=== PATIENT | female | born 1955 | race African-American/Black ===

== ENCOUNTER 2016-05-08 21:44 | Inpatient (IN) | payer MEDICAID ==
[2016-05-08] MEDS ORDERED: Clindamycin 900 mg/D5W 50 ml 900 MG/50 ML IVB IV ONE (23:10)
[2016-05-08] MEDS ORDERED: ACETAMINOPHEN 325 MG/TAB TABLET PO ONE (23:11)
--- NOTE | 2016-05-08 23:14 | EDPRACDOC ---
- General Information Chief Complaint: Knee Pain Stated Complaint: KNEE PAIN Time Seen by Provider: 05/08/16 22:50 Information Source: Patient Mode of Arrival: Car Home Medications: Home Medications Beclomethasone Dipropionate [QVar 80 (8.7 gm inhaler)] 2 puff INH BID 01/01/13 Estrogens [Premarin] 0.625 mg PO DAILY 01/01/13 Tiotropium [Spiriva Handihaler] 18 mcg INH DAILY 01/01/13 MetFORMIN (Immediate Release) [GLUCOPHAGE Immed Release] 500 mg PO BID 07/08/13 Albuterol Sulfate [Proventil Hfa] 2 puff INH BID 02/12/16 Azathioprine [Azasan] 100 mg PO DAILY 02/12/16 Fenofibric Acid (Choline) [Trilipix] 135 mg PO DAILY 02/12/16 Fesoterodine Fumarate [Toviaz] 8 mg PO DAILY 02/12/16 Hydroxyzine HCl 25 mg PO TID PRN 02/12/16 Multivitamin [One Daily] 1 each PO DAILY 03/28/16 Aspirin (OrangeEnteric Coated) [Ecotrin] 325 mg PO BIDWM #60 tablet 04/04/16 Celecoxib (anti-inflammatory) [Celebrex] 200 mg PO BIDWM #28 capsule 04/04/16 Oxycodone Immediate Release [Oxycodone Immediate Release (OxyIR)] 5 mg PO Q4 PRN #60 tablet 04/04/16 Allergies/Adverse Reactions: Allergies Allergy/AdvReac Type Severity Reaction Status Date / Time Penicillins Allergy Hives* Verified 05/09/16 00:39 - History of Present Illness 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 PAIN IN RIGHT LATERAL THIGH FOR SEVERAL DAYS. INCREASING. "BLEEDING FROM MIDDLE OF INCISION FOR SEVERAL DAYS. THEN TODAY PROGRESSED TO "PURE PUS". ASSOC WITH SHAKING CHILLS. AND INCREASING PAIN DESPITE PAIN MEDS. Knee Problem Location: Right ED Past Medical History - History Reviewed Yes Nurses notes reviewed and agree except as marked - Patient Medical History Cardiac History: Reports: Coronary Artery Disease (NON OBSTRUCTIVE), Hypertension, Cardiac Catheterization (2011), Hypercholesterolemia Respiratory History: Reports: Asthma GI/ History: Reports: Urinary Tract Infection, Gastroesophageal Reflux Musculoskeletal History: Reports: Arthritis, Osteoarthritis Psychological History: Denies: Depression Systemic History: Reports: Cancer, Anemia, Diabetes Surgical History: Reports: Cholecystectomy, Cardiac Catheterization (2012). Denies: Hysterectomy - Family Medical History Reports: Hypertension (Father,Mother,Siblings), Diabetes (Father,brothers), Cardiac Disorders (Father,Brother). Denies: Cancer, Stroke - Social Medical History Smoking Status: Heavy tobacco smoker (5 or more cigarettes/day or daily pipe/ cigar) EDM Review of Systems - Review of Systems ROS Negative Except as Marked: Yes All systems reviewed and were negative except as marked Mouth: No Symptoms Reported Respiratory: No Symptoms Reported. negative: Cough, Shortness of Breath Genitourinary: negative: Dysuria, Frequency, Foul Ordor - Physical Exam Constitutional: No apparent distress, Alert, Other (MORBID OBESITY) Oriented to: Time, Person, Place Last recorded Vital Signs: Last Vital Signs Temp 100.1 F 05/08/16 22:56 Pulse 108 05/08/16 22:56 Resp 20 05/08/16 22:56 BP 172/76 05/08/16 22:56 Pulse Ox 99 05/08/16 22:56 Oxygen Pulse Oxygen Saturation 99 O2 Device Room Air Oxygen Flow Rate Fraction of Inspired Oxygen ( FIO2) - HEENT Head: Normal Eye Exam: negative: Pale Conjunctiva, Scleral Icterus Oropharynx: Normal. negative: Membranes Dry - Respiratory/Cardiovascular Respiratory: Normal - CTA Cardiovascular: Normal - GI Tenderness: Non tender ED Knee Problem Phys Exam - Musculoskeletal Knee: Swelling, Joint Effusion, Limited ROM ( EXPECTED), Moderate Tenderness Knee Image: 1 - ERYTHEMA AND WARTH W/O CREPITANCE. 2 - ERYTHEMA AND WARTH W/O CREPITANCE. 3 - INCISION, STERI-STRIPS IN PLACE. MIDDLE ASPECT HAS EVIDENCE OF PRIOR BLEEDING (NON-CURRENTLY). UNABLE TO EXPRESS FLUID. Thigh: Moderate Tenderness (LATERAL / DISTAL THIGH) Lower Leg: Normal Distal Function/Circulation: Normal, Capillary Refill (BRISK). negative: Motor Deficit, Pulse Deficit, Sensory Deficit - Results 05/08/16 23:50 05/08/16 23:50 - Departure Disposition: Admit IP To This Hospital Final Diagnosis: Wound infection after surgery Qualifiers: Encounter type: initial encounter Qualified Code(s): T81.4XXA - Infection following a procedure, initial encounter Instructions: RICE: Routine Care for Injuries Education/Counseling Given To: Patient Education/Counseling Given Regarding: Diagnosis, Treatment, Prognosis Referrals: Von Leslie MD [Primary Care Provider] - One Week Prescriptions: No Action Estrogens [Premarin] 0.625 mg PO DAILY Tiotropium [Spiriva Handihaler] 18 mcg INH DAILY Beclomethasone Dipropionate [QVar 80 (8.7 gm inhaler)] 2 puff INH BID MetFORMIN (Immediate Release) [GLUCOPHAGE Immed Release] 500 mg PO BID Hydroxyzine HCl 25 mg PO TID PRN PRN Reason: Hives Fesoterodine Fumarate [Toviaz] 8 mg PO DAILY Azathioprine [Azasan] 100 mg PO DAILY Fenofibric Acid (Choline) [Trilipix] 135 mg PO DAILY Albuterol Sulfate [Proventil Hfa] 2 puff INH BID Multivitamin [One Daily] 1 each PO DAILY Aspirin (OrangeEnteric Coated) [Ecotrin] 325 mg PO BIDWM #60 tablet Celecoxib (anti-inflammatory) [Celebrex] 200 mg PO BIDWM #28 capsule Oxycodone Immediate Release [Oxycodone Immediate Release (OxyIR)] 5 mg PO Q4 PRN #60 tablet PRN Reason: Mild To Moderate Pain Decision to Admit Time: 23:45 Decision to admit date: 05/09/16 Decision to admit: from ED - Physician Consulted Orthopedics Time Called: 23:27 Provider Called: Frank Mendoza Time [employer] Returned Call: 23:27 (WILL CONSIDER DISPO AFTER LABS) Time [employer] Drafter in ED: 23:45 (SEEN BY DR NIXON, WILL ADMIT)
[2016-05-08 23:48] LABS: CA OXALATE OCC; LEUKOCYTES/URINE NEG (NEGATIVE); NITRITE/URINE NEG (NEGATIVE); URINE OCCULT BLOOD NEG (NEG/TRACE)
[2016-05-09] MEDS ORDERED: Aluminum;Magnesium;Simethicone 30 ML UDC PO PRN (00:14)
[2016-05-09] MEDS ORDERED: ONDANSETRON HCL 4 MG/2 ML VIAL IV PRN ×2 (00:14→11:05)
[2016-05-09] MEDS ORDERED: PROMETHAZINE 25 MG/ML VIAL IV PRN (00:14)
[2016-05-09] MEDS ORDERED: HYDROmorphone 1 MG INJECTION IV PRN ×6 (00:14→15:50)
[2016-05-09] MEDS ORDERED: SODIUM CHLORIDE 0.9% 3 ML FLUSH FLUSH PRN (00:14)
[2016-05-09] MEDS ORDERED: MAGNESIUM HYDROXIDE 30 ML BOTTLE PO PRN (00:14)
--- NOTE | 2016-05-09 00:16 | DIRPT ---
CLINICAL DATA: Postoperative right knee arthroplasty revision. Redness and swelling with purulent drainage at the incision site. EXAM: RIGHT KNEE - COMPLETE 4+ VIEW COMPARISON: 04/02/2016 FINDINGS: Postoperative right total knee arthroplasty using long-stem articulated femoral and tibial components. Plate and screw fixation along the medial tibial metaphysis. The proximal portion of the femoral component is not included within the field of view. Visualize components appear well seated. No evidence of any bone lucency or cortical loss to suggest osteomyelitis. No significant effusion. No evidence of acute fracture or dislocation. Soft tissues are unremarkable. IMPRESSION: Postoperative changes with right knee arthroplasty using long-stem components. Components appear well seated as visualized. No acute bony abnormalities. Electronically Signed By: Jus Gil M.D. On: 05/09/2016 00:13
[2016-05-09 00:24] LABS: AUTOMATED BASOPHIL 1.1 % (0-2); AUTOMATED EOSINOPHIL 0.4 % (0-5); AUTOMATED LYMPH 10.7 % (17-44); AUTOMATED MONOCYTE 5.1 % (3-10); AUTOMATED NEUTROPHIL 82.7 % (45-76); MPV 9.5 fL (7.4-10.4)
--- NOTE | 2016-05-09 00:34 | HISTPHYS ---
- Chief Complaint knee pain right - History of Present Illness Mrs Stone is a 60-year-old female who underwent revision right total knee arthroplasty 1 month ago. She had an uneventful recovery and recently was discharged home from a rehab facility. Patient states that over a week ago she was transferring from her toilet when she felt something tear in the anterior aspect of the right knee. She later noticed some bleeding from the midportion of her incision that day. Patient states that this has occurred off and on over the past week and today she noticed purulent drainage from the same area at the midportion of her incision. She does have associated redness and swelling of the right knee and increased pain with any attempts at ambulation. She does complain of fevers and chills. Patient presented to the ER today with the above complaints. - Medical History Cardiac History: Reports: Coronary Artery Disease (NON OBSTRUCTIVE), Hypertension, Cardiac Catheterization (2011), Hypercholesterolemia Respiratory History: Reports: Asthma GI/ History: Reports: Urinary Tract Infection, Gastroesophageal Reflux Musculoskeletal History: Reports: Arthritis, Osteoarthritis Systemic History: Reports: Cancer, Anemia, Diabetes Psychological History: Denies: Depression - Surgical History Reports: Cholecystectomy, Cardiac Catheterization (2011), Other (Revision right total knee arthroplasty 04/02/2016). Denies: Hysterectomy - Medictions/Allergies Allergies Penicillins Allergy (Verified 04/02/16 18:40) Hives* Home Medications Beclomethasone Dipropionate [QVar 80 (8.7 gm inhaler)] 2 puff INH BID 01/01/13 Estrogens [Premarin] 0.625 mg PO DAILY 01/01/13 Tiotropium [Spiriva Handihaler] 18 mcg INH DAILY 01/01/13 MetFORMIN (Immediate Release) [GLUCOPHAGE Immed Release] 500 mg PO BID 07/08/13 Albuterol Sulfate [Proventil Hfa] 2 puff INH BID 02/12/16 Azathioprine [Azasan] 100 mg PO DAILY 02/12/16 Fenofibric Acid (Choline) [Trilipix] 135 mg PO DAILY 02/12/16 Fesoterodine Fumarate [Toviaz] 8 mg PO DAILY 02/12/16 Hydroxyzine HCl 25 mg PO TID PRN 02/12/16 Multivitamin [One Daily] 1 each PO DAILY 03/28/16 Aspirin (OrangeEnteric Coated) [Ecotrin] 325 mg PO BIDWM #60 tablet 04/04/16 Celecoxib (anti-inflammatory) [Celebrex] 200 mg PO BIDWM #28 capsule 04/04/16 Oxycodone Immediate Release [Oxycodone Immediate Release (OxyIR)] 5 mg PO Q4 PRN #60 tablet 04/04/16 - Family History Reports: Hypertension (Father,Mother,Siblings), Diabetes (Father,brothers), Cardiac Disorders (Father,Brother). Denies: Cancer, Stroke - Social History Smoking Status: Heavy tobacco smoker (5 or more cigarettes/day or daily pipe/ cigar) - Review of Systems Yes All systems reviewed and were negative except as marked Constitutional: Chills, Fever Musculoskeletal:: Other (Right knee pain, swelling, redness, drainage) - Physical Exam Vital Signs: Initial Vitals Temperature 100.5 F 05/08/16 21:58 Pulse Rate 106 05/08/16 21:58 Respiratory Rate 20 05/08/16 21:58 Blood Pressure 159/71 05/08/16 21:58 Pulse Oxygen Saturation 97 05/08/16 21:58 Constitutional: No apparent distress, Alert Oriented to: Time, Person, Place - HEENT Head: Normal Eye: Normal Respiratory: Normal - CTA Cardiovascular: Normal - GI Auscultation: Normal Palpation: Normal Tenderness: Non tender - Exam Deferred: Yes - Musculoskeletal Extremities: Other (Right knee does have moderate erythema and a mild effusion. She does have active expressible purulent drainage from the midportion of her incision. No bloody drainage. Active range of motion is limited by pain. Passive range of motion 0-90 degrees. No gross laxity. Patient has full plantar flexion and dorsiflexion of the right ankle. Sensation intact L4-S1 distally. Palpable dorsalis pedis and posterior tibial pulses distally.) - Lab Results 05/08/16 23:50 Sed rate, CRP pending Blood cultures pending - Diagnostic Findings Four view x-ray of the right knee done in the ER was personally reviewed. X- rays reveal revision total knee arthroplasty components to be in acceptable position. No evidence of fracture, lytic or blastic lesions or evidence of loosening. Proximal tibial but plate present. - Assessment/Plan (1) Wound infection after surgery T81.4XXA - INFECTION FOLLOWING A PROCEDURE, INITIAL ENCOUNTER Acute Present on Admission: Yes initial encounter T81.4XXA - Infection following a procedure, initial encounter Case Care Discussed with: Patient, Consultants Plan: 1. Postop wound infection right knee. Probable acute right total knee arthroplasty infection 2. Status post revision right total knee arthroplasty 04/02/2016 -patient has been it admitted to the orthopedic service. Will consult hospitalist for preoperative medical clearance and medical comanagement -recommend NPO after midnight and hold all antibiotics. -ESR, CRP labs are pending. -recommendations for incision and drainage of the right knee with polyethylene exchange, possible explantation of total knee components and placement of an antibiotic spacer was made to the patient at today's visit. Risks of the procedure to include but not limited to: Infection, blood loss, blood clots, wound healing problems, fracture, Brie risks of anesthesia, or need further procedures were discussed with the patient. She does understand these risks and elects to proceed with the planned surgery. -on-call to the OR tomorrow for right knee washout, poly exchange
[2016-05-09 00:38] LABS: BLOOD UREA NITROGEN 13 MG/DL (7-17); CALC CORRECTED 9.8 MG/DL (8.4-10.2); CALCIUM 9.6 MG/DL (8.4-10.2); CALCULATED OSMOLALITY 272 MOs/Kg (270-290); CHLORIDE 105 mEq/L (98-107); GLUCOSE 112 MG/DL (70-99); SODIUM LEVEL 141 mEq/L (137-146); TOTAL PROTEIN 8.1 G/DL (6.3-8.2)
[2016-05-09] MEDS ORDERED: NALOXONE 0.4 MG/ML AMPULE IV SCH ×2 (01:00)
[2016-05-09] MEDS ORDERED: MUPIROCIN 2% OINT 22 GM TUBE NAS SCH ×2 (01:00→05:00)
[2016-05-09] MEDS: NS 1,000 ML IV SCH ×3 (01:14→16:20)
--- NOTE | 2016-05-09 01:25 | HIMCONSMED ---
Consultation Date: 05/09/16 Requesting Physician: Devin Mccarthy Consulting Doctor: Uche Leal (Thank you) Consult Reason: Medical Management Patient very pleasant morbidly obese single female who lives with her granddaughter and unfortunately suffers with obstructive sleep apnea, diabetes mellitus, osteoarthritis, autoimmune hepatitis diagnosed 3 years ago, hypertriglyceridemia, and now with an infected right knee replacement that took place in March 2016. She has had some mild difficulty ambulating with her obesity and tells me that she sat on the toilet 6 days ago, heard a pop in her right knee, and developed right lateral thigh pain which was exacerbated by standing. She contacted Dr. Mccarthy is office subsequently and has had great amount of difficulty ambulating. Today she noted blood and pus draining from her right knee. She is not aware of having any history of methicillin- resistant Staph aureus infection. Chief Complaint: knee pain right - Past Medical and Surgical History Cardiac History: Reports: Coronary Artery Disease (NON OBSTRUCTIVE), Hypertension, Cardiac Catheterization (2011), Hypercholesterolemia Respiratory History: Reports: Asthma GI/ History: Reports: Urinary Tract Infection, Gastroesophageal Reflux Systemic History: Reports: Cancer, Anemia, Diabetes Musculoskeletal History: Reports: Arthritis, Osteoarthritis Psychological History: Denies: Depression Past Surgical History: Reports: Cholecystectomy, Hysterectomy, Cardiac Catheterization (2011), Other (Revision right total knee arthroplasty 04/02/2016 ) Bilateral carpal tunnel surgery. Herniated lumbar disc surgery Allergies Penicillins Allergy (Verified 05/09/16 00:39) Hives* Home Medications Beclomethasone Dipropionate [QVar 80 (8.7 gm inhaler)] 2 puff INH BID 01/01/13 Estrogens [Premarin] 0.625 mg PO DAILY 01/01/13 Tiotropium [Spiriva Handihaler] 18 mcg INH DAILY 01/01/13 MetFORMIN (Immediate Release) [GLUCOPHAGE Immed Release] 500 mg PO BID 07/08/13 Albuterol Sulfate [Proventil Hfa] 2 puff INH BID 02/12/16 Azathioprine [Azasan] 100 mg PO DAILY 02/12/16 Fenofibric Acid (Choline) [Trilipix] 135 mg PO DAILY 02/12/16 Fesoterodine Fumarate [Toviaz] 8 mg PO DAILY 02/12/16 Hydroxyzine HCl 25 mg PO TID PRN 02/12/16 Multivitamin [One Daily] 1 each PO DAILY 03/28/16 Aspirin (OrangeEnteric Coated) [Ecotrin] 325 mg PO BIDWM #60 tablet 04/04/16 Celecoxib (anti-inflammatory) [Celebrex] 200 mg PO BIDWM #28 capsule 04/04/16 Oxycodone Immediate Release [Oxycodone Immediate Release (OxyIR)] 5 mg PO Q4 PRN #60 tablet 04/04/16 - Social History Travel Outside of [place] in the Last 3 Months?: No Lives: With Family (Granddaughter) Smoking Status: Light tobacco smoker (less than 5/day) (Claims to only smoke 3 cigarettes a day and is interested in [place]) Social History: Denies: Alcohol Use, Substance Use Disorder - Family History Reports: Hypertension (Father,Mother,Siblings), Diabetes (Father,brothers), Cardiac Disorders (Father,Brother). Denies: Cancer, Stroke - Review of Systems Constitutional: Chills, Fatigue, Weakness Eyes: No Symptoms Reported (No blurry vision, visual changes, eye pain, or eye redness.) Ears: No Symptoms Reported (No ear pain or discharge) Nose: No Symptoms Reported (No nasal discharge/congestion or bleeding) Mouth: No Symptoms Reported (No oropharyngeal lesions or erythema) Throat/Neck: No Symptoms Reported (No throat pain or swelling.No oropharyngeal lesions or erythema.) Respiratory: Other (Obstructive sleep apnea with morbid obesity) Cardiovascular: No Symptoms Reported (No chest pain or palpitations.) Gastrointestinal: Other (Morbid obesity with BMI 56.7) Genitourinary: No Symptoms Reported (No dysuria or hematuria.) Neurological: No Symptoms Reported (No headache, dizziness, seizures, or focal weakness.) Musculoskeletal:: Arthritis, Osteoarthritis, Joint Swelling (Right knee with pus ) Integumentary: Other (Right knee with pus) Allergic/Immunologic: No Symptoms Reported (no rashes or lesions) Hematologic: No Symptoms Reported (No chronic anemia, bleeding, or easy bruising.), Other (Lymphatics- no lymph node swelling or pain.) Endocrine: Diabetes Psychiatric: No Symptoms Reported (Fully oriented, with normal and appropriate affect.) - Physical Exam Vital Signs: Initial Vitals Temperature 100.5 F 05/08/16 21:58 Pulse Rate 106 05/08/16 21:58 Respiratory Rate 20 05/08/16 21:58 Blood Pressure 159/71 05/08/16 21:58 Pulse Oxygen Saturation 97 05/08/16 21:58 Constitutional: Alert (Awake, Fully oriented. Normal and appropriate affect.Well appearing. Well nourished.), No apparent distress Oriented to: Time, Person, Place - HEENT Head: Normal (normocephalic, atraumatic.), Other (No cervical lymphadenopathy. No supraclavicular lymphadenopathy. Neck: No palpable mass, supple , trachea midline.) Eye: Normal (pupils equal, reactive to light, and round; EOMI, Sclera white) Oropharynx: Normal (Pharynx: Moist without exudate,Gums-no swelling, No oropharyngeal lesions or erythema, Mucous membranes are dry.) ENT EAC: Normal (No oropharyngeal lesions or erythema. Mucous membranes are dry. ) TMJ: Normal Nose: No Symptoms Reported (septum midline, Nares patent, without discharge or bleeding.) Respiratory: Normal - CTA (Clear to auscultation bilaterally. No wheezing, rales , rhonchi. Chest wall movements are symmetric. No use of accessory muscles to breathe.) Cardiovascular: Normal (RRR , Normal S1, S2. No murmurs, rubs, or gallops. PMI non-displaced. Carotids: no carotid bruits. No bradycardia or tachycardia. DP pulses 2+ bilaterally.) - GI Auscultation: Normal (normal active sounds) Palpation: Normal (Soft,non distended,nontender. No hepatosplenomegaly.) Tenderness: Non tender (No rebound or guarding) Shaikh's Sign: Negative - Musculoskeletal Back: Normal (Non-Tender) Extremities: Pedal Edema, Other (Right knee wound draining purulent material and midline incision approximately half a cm in length with swelling and tenderness) Spine: non-tender, normal alignment, limited range of motion, muscle spasm - Integumentary Skin: Warm, Other (Purulent material draining from mid point of right knee incision) Lymphatics: Normal (No cervical lymphadenopathy. No supraclavicular lymphadenopathy.) - Neurologic Memory Impaired: Normal Motor Function: Normal (Motor 5/5 throughout.Normal tone, Pulses 2+ No cyanosis or edema, FROM) Cranial Nerve: Normal (CN II-XII intact sensation, strength 5/5) Cerebellar: Normal (Babinski: toes downgoing bilaterally. Intact Finger to nose. Sensory grossly intact to light touch. Intact rapid alternating movements bilaterally. No pronator drift.) Mood Description: Normal (Fully oriented. Normal and appropriate affect.) Thought: Coherent Perception: Normal (Normal and appropriate affect.) - Lab Results 05/08/16 23:50 05/08/16 23:50 Laboratory Results - last 24 hr 05/08/16 05/08/16 05/08/16 23:35 23:50 23:50 WBC RBC Hgb Hct MCV MCH MCHC RDW Plt Count MPV Neut % (Auto) Lymph % (Auto) [place] % (Auto) Eos % (Auto) Baso % (Auto) Absolute Neuts (auto) Absolute Lymphs (auto) ESR Sodium 141 Potassium 4.1 Chloride 105 Carbon Dioxide 24 Anion Gap 16 BUN 13 Creatinine 0.70 Estimated GFR (MDRD) > 60 Glucose 112 H Calculated Osmolality 272 Lactic Acid 2.5 H Calcium 9.6 Corrected Calcium 9.8 Total Bilirubin 0.7 AST 34 ALT 34 Alkaline Phosphatase 90 C-Reactive Prot, Quant Total Protein 8.1 Albumin 3.8 Urine Color Dark yellow Urine Clarity Sl cldy Urine pH 8.0 Ur Specific [place] 1.015 Urine Protein 1+ H Urine Glucose (UA) Neg Urine Ketones Neg Urine Occult Blood Neg Urine Nitrite Neg Urine Bilirubin Neg Urine Urobilinogen 8 H Ur Leukocyte Esterase Neg Ur Epithelial Cells 2+ Calcium Oxalate Crystal Occ Urine Bacteria Few Urine Mucus Occ 05/08/16 05/08/16 05/08/16 23:50 23:50 23:50 WBC 12.2 H RBC 3.70 L Hgb 11.0 L Hct 34.6 L MCV 93 MCH 29.6 MCHC 31.7 L RDW 16.0 H Plt Count 261 MPV 9.5 Neut % (Auto) 82.7 H Lymph % (Auto) 10.7 L [place] % (Auto) 5.1 Eos % (Auto) 0.4 Baso % (Auto) 1.1 Absolute Neuts (auto) 10.00 H Absolute Lymphs (auto) 1.22 ESR 63 H Sodium Potassium Chloride Carbon Dioxide Anion Gap BUN Creatinine Estimated GFR (MDRD) Glucose Calculated Osmolality Lactic Acid Calcium Corrected Calcium Total Bilirubin AST ALT Alkaline Phosphatase C-Reactive Prot, Quant 14.5 H Total Protein Albumin Urine Color Urine Clarity Urine pH Ur Specific [place] Urine Protein Urine Glucose (UA) Urine Ketones Urine Occult Blood Urine Nitrite Urine Bilirubin Urine Urobilinogen Ur Leukocyte Esterase Ur Epithelial Cells Calcium Oxalate Crystal Urine Bacteria Urine Mucus - Assessment (1) Wound infection T14.8 - OTHER INJURY OF UNSPECIFIED BODY REGION; L08.9 - LOCAL INFECTION OF THE SKIN AND SUBCUTANEOUS TISSUE, UNSP Acute Present on Admission: Yes Postop right knee wound infection warrants administration of IV antibiotic and surgical intervention by . She tolerated her last surgery without significant complications such as prolonged intubation and should be able to tolerate this again. She denies any significant history of chest pain, exertional or otherwise. Her dyspnea is related to the obstructive sleep apnea. She still has a slight increased risk of complications given her diabetes and morbid obesity. Weight loss would be beneficial as with smoking cessation. (2) Obstructive sleep apnea G47.33 - OBSTRUCTIVE SLEEP APNEA (ADULT) (PEDIATRIC) Acute Present on Admission: Yes Nocturnal CPAP as ordered. Of taken liberty of ordering this for her. Hopefully someone can bring her apparatus from home. (3) Morbid obesity with BMI of 50.0-59.9, adult E66.01 - MORBID (SEVERE) OBESITY DUE TO EXCESS CALORIES; Z68.43 - BODY MASS INDEX (BMI) 50-59.9 , ADULT Acute Present on Admission: Yes Weight reduction would help glycemic control and her unfortunate joints that have to support her adiposity. (4) Non-insulin dependent type 2 diabetes mellitus E11.9 - TYPE 2 DIABETES MELLITUS WITHOUT COMPLICATIONS Acute Present on Admission: Yes Sliding scale insulin therapy ordered as well as previous medications. Weight reduction may help in More ways than 1. (5) Tobacco abuse Z72.0 - TOBACCO USE Acute Present on Admission: Yes 10 minutes discussion smoking cessation. She states she has been able to stop for a few days in the past but never for prolonged period time. I advised her that she needs to stop given her multiple other problems. She agrees to take Chantix and may benefit from a transient low-dose nicotine patch. - Plan Thank you Dr. Mccarthy for allowing me to participate in this interesting once care and we look forward to seeing her with you. CC: Dr. Shari Leslie Case Care Discussed with: Patient, Consultants, Nursing Staff, Resource Management Total Time: One Hour 8 minutes plus additional 10 minutes discussing smoking cessation. Critical Care: No Code: Other ([phone])
[2016-05-09] MEDS ORDERED: GLUCOSE (ORAL GEL) 15 GM TUBE PO PRN (01:42)
[2016-05-09] MEDS ORDERED: DEXTROSE 25 GM/50 ML PFS IV PRN (01:42)
[2016-05-09] MEDS ORDERED: GLUCAGON 1 MG VIAL SQ PRN (01:42)
[2016-05-09 01:59] VITALS: BMI 51.2
[2016-05-09] MEDS: NICOTINE 7 MG PATCH TOP SCH (02:18)
[2016-05-09] MEDS ORDERED: CHLORHEXIDINE (HIBICLENS) 4 OZ BOTTLE TOP ONE (02:20)
[2016-05-09] MEDS: OXYCODONE HCL 5 MG TABLET PO PRN (02:36)
[2016-05-09] MEDS: IPRATROPIUM 0.02% 2.5 ML NEB NEB SCH ×4 (02:53→20:09)
[2016-05-09] MEDS ORDERED: Vaccine Screening Complete SCH (06:00)
[2016-05-09] MEDS ORDERED: SODIUM CHLORIDE 0.9% 3 ML FLUSH FLUSH SCH ×3 (06:00→15:00)
[2016-05-09] MEDS: REGULAR INSULIN 100 UNITS/ML - 3 ML VIAL SQ SCH ×4 (07:51→21:38)
[2016-05-09] MEDS: MetFORMIN 500 MG IMMED RELEASE TAB PO SCH ×2 (07:51→17:34)
[2016-05-09] MEDS: ALBUTEROL 0.083% 3 ML NEB NEB SCH ×2 (08:12→20:12)
[2016-05-09] MEDS: BUDESONIDE 0.5 MG NEB NEB SCH ×2 (08:20→20:12)
[2016-05-09] MEDS: FENOFIBRATE 145 MG TAB PO SCH (08:28)
[2016-05-09] MEDS: AZATHIOPRINE 50 MG TAB PO SCH (08:29)
[2016-05-09] MEDS: TOLTERODINE 4 MG LA CAP PO SCH (08:29)
[2016-05-09] MEDS ORDERED: AZATHIOPRINE 100 MG PO SCH (09:00)
[2016-05-09] MEDS ORDERED: FENOFIBRIC ACID 135 MG PO SCH (09:00)
[2016-05-09] MEDS ORDERED: Non-Formulary Medication ITEM (Tiotropium [Spiriva Handihaler] 18 MCG) INH SCH (09:00)
[2016-05-09] MEDS ORDERED: FESOTERODINE FUMARATE 8 MG PO SCH (09:00)
[2016-05-09] MEDS ORDERED: Non-Formulary Medication ITEM (Multivitamin [One Daily] 1 EACH) PO SCH (09:00)
[2016-05-09] MEDS ORDERED: ALBUTEROL 6.7 GM MDI INH SCH (09:00)
[2016-05-09] MEDS ORDERED: BACITRACIN 50,000 UNITS VIAL ONE ×2 (09:28→11:45)
[2016-05-09] MEDS ORDERED: SUCCINYLCHOLINE 20 MG/1 ML INJ 10 ML MDV IV ONE (10:00)
[2016-05-09] MEDS ORDERED: NEOSTIGMINE 1 MG/1 ML (1:1000) INJ 10 ML MDV IM ONE (10:00)
[2016-05-09] MEDS ORDERED: ONDANSETRON HCL 4 MG/2 ML VIAL IV ONE (10:00)
[2016-05-09] MEDS ORDERED: PROPOFOL 200 MG/20 ML VIAL IV ONE (10:00)
[2016-05-09] MEDS ORDERED: FENTANYL 250 MCG/5 ML VIAL IV ONE (10:00)
[2016-05-09] MEDS ORDERED: LIDOCAINE 100 MG PFS IV ONE (10:00)
[2016-05-09] MEDS ORDERED: MIDAZOLAM 2 MG/2 ML VIAL IV ONE (10:00)
[2016-05-09] MEDS ORDERED: HYDROmorphone 2 MG/ML VIAL IM ONE (10:00)
[2016-05-09] MEDS ORDERED: GLYCOPYRROLATE 1 MG VIAL IM ONE (10:00)
[2016-05-09] MEDS ORDERED: DEXAMETHASONE 4 MG/ML VIAL IV ONE (10:00)
[2016-05-09] MEDS ORDERED: ROCURONIUM 50 MG/5 ML VIAL IV ONE (10:00)
[2016-05-09] MEDS: MUPIROCIN 2% OINT 22 GM TUBE NAS SCH ×2 (10:13→21:35)
--- NOTE | 2016-05-09 11:03 | HIM.ANES ---
Anesthesia Evaluation & Plan Diagnoses: right knee infection post TKA 04/02/1916 Consented Procedure: poly exchange Surgeon:: Devin Mccarthy - Focused Review of Systems Now: No Cardiac History: Yes: Hx Hypertension, Hx Cardiac Catheterization (2011), Hx Heart Murmur, Hx Cardiac Disorders, Hx Abnormal Cholesterol/Hyperlipidemia, Hx Cardiomegaly (MILD PER CXR 01/28/15) HEENT: Yes: Hx Deviated Septum (NARROWING OF NASAL PASSAGES), Hx Vision Problem (READING GLASSES), Other HEENT Problems Hx Other HEENT Problems: DEVIATED NASAL SEPTUM; RHINITIS Respiratory: Yes: Hx Asthma, Hx Sleep Apnea, Hx CPAP Dependent (LEVEL 14) Gastrointestinal: Yes: Hx Gastrointestinal Disorders, Hx Colonoscopy (2011 or 2012) Neurological/Musculoskeletal: Yes: Hx Back Pain, Hx Peripheral Neuropathy No: Hx Neurological Disorders Psychological: No Hx Depression, No Hx Mental/Emotional Disorders Endocrine: Yes: Hx Non-Insulin Dependent Diabetes Blood/Autoimmune: Yes: Hx Blood Transfusions, Hx Anemia, Hx Hepatitis (type) ( AUTOIMMUNE HEPATITIS) No: Hx AIDS Smoking Status: Light tobacco smoker (less than 5/day) Past Social History: Denies: Alcohol Use, Substance Use Disorder Hx Chest Xray (date): Yes (01/2015) Surgical History: Yes: Cholecystectomy, Back (Low back 2010), Knee (RT TKA 1986 , LT TKA 1986), Other (Revision right total knee arthroplasty 04/02/2016) Other Surgical History: TOTAL HYSTERECTOMY 2004, - Focused Physical Exam NPO since: 229 Mallampati: Class II Thyromental Distance: Greater than 3 Neck: Full Range of Motion Dental: Normal - no significant findings Cardiovascular/Chest: Normal (RRR no mumurs or rubs.) Respiratory: Lungs clear. negative: Rhonchi, Wheezing Any problems with anesthesia, including nausea and vomiting?: No Any relatives with a history of Malignant Hyperthermia?: No Does patient have a history of Malignant Hyperthermia?: No Beta Julio given (if appropriate): N/A Does the patient have a history of Motion Sickness-: No Other: Problem List Problem Status Onset Morbid obesity with BMI of 50.0-59.9, adult Acute Non-insulin dependent type 2 diabetes mellitus Acute Obstructive sleep apnea Acute Tobacco abuse Acute Wound infection Acute Wound infection after surgery Acute Cholecystitis Active Abdominal pain Acute Abdominal pain in female patient Acute Cellulitis of left forearm Acute Diverticula of colon Acute Edema of foot Acute Elevated LFTs Acute Liver enzyme elevation Acute Status post revision of total replacement of right knee Acute Allergies Allergy/AdvReac Type Severity Reaction Status Date / Time Penicillins Allergy Hives* Verified 05/09/16 00:39 Home Medications Medication Instructions Recorded Last Taken Type Beclomethasone Dipropionate [QVar 2 puff INH BID 01/01/13 05/08/16 History 80 (8.7 gm inhaler)] Estrogens [Premarin] 0.625 mg PO DAILY 01/01/13 05/08/16 History Tiotropium [Spiriva Handihaler] 18 mcg INH DAILY 01/01/13 05/08/16 History MetFORMIN (Immediate Release) 500 mg PO BID 07/08/13 05/08/16 History [GLUCOPHAGE Immed Release] Albuterol Sulfate [Proventil Hfa] 2 puff INH BID 02/12/16 05/08/16 History Azathioprine [Azasan] 100 mg PO DAILY 02/12/16 05/08/16 History Fenofibric Acid (Choline) 135 mg PO DAILY 02/12/16 05/08/16 History [Trilipix] Fesoterodine Fumarate [Toviaz] 8 mg PO DAILY 02/12/16 05/08/16 History Hydroxyzine HCl 25 mg PO TID PRN 02/12/16 05/08/16 History Multivitamin [One Daily] 1 each PO DAILY 03/28/16 05/08/16 History Aspirin (OrangeEnteric Coated) 325 mg PO BIDWM #60 tablet 04/04/16 05/08/16 Rx [Ecotrin] Celecoxib (anti-inflammatory) 200 mg PO BIDWM #28 capsule 04/04/16 05/08/16 Rx [Celebrex] Oxycodone Immediate Release 5 mg PO Q4 PRN #60 tablet 04/04/16 05/08/16 Rx [Oxycodone Immediate Release (OxyIR)] Height and Weight Patient's height 5 ft 2 in Patient's weight 127.142 kg Weight (Calculated Kilograms) 127.142 BMI 51.2 Vital Signs Temperature 99.1 F 05/09/16 10:12 Pulse Rate 104 05/09/16 10:12 Respiratory Rate 20 05/09/16 10:12 Blood Pressure 107/47 L 05/09/16 10:12 Pulse Oxygen Saturation 97 05/09/16 10:12 METS - Level of Activity: Climbing stairs(1 flight),walking level ground, running short distance - Anesthetic Plan Anesthesia Type: General ASA Class: 3 -: I have examined this patient and reviewed the medical record. The patient has been assessed prior to anesthesia. Risks and benefits of anesthesia and anesthetic technique options have been discussed and all questions answered. The patient accepts the risk and desires me to proceed with the planned anesthetic.
[2016-05-09] MEDS ORDERED: FENTANYL 100 MCG/2 ML VIAL IV PRN ×2 (11:05)
[2016-05-09] MEDS ORDERED: hydrALAZINE 20 MG/ML VIAL IV PRN (11:05)
[2016-05-09] MEDS ORDERED: MEPERIDINE 25 MG/ML TUBEX IV PRN (11:05)
[2016-05-09] MEDS ORDERED: LABETALOL 20 MG/4 ML SYRINGE IV PRN (11:05)
[2016-05-09] MEDS ORDERED: ONDANSETRON HCL 4 MG ODT TAB PO PRN (11:05)
[2016-05-09] MEDS: VITAMINS, MULTIPLE CAP PO SCH (11:49)
[2016-05-09] MEDS: VANCOMYCIN 1,000 MG VIAL INSTILL ONE ×2 (13:20→16:17)
[2016-05-09] MEDS: TOBRAMYCIN MIS ONE ×2 (13:20→16:16)
--- NOTE | 2016-05-09 14:07 | HIMOPRPT ---
DATE OF PROCEDURE: 05/09/16 PREOPERATIVE DIAGNOSIS: Acute right total knee infection Traumatic medial retinacular tear right knee Morbid obesity POSTOPERATIVE DIAGNOSIS: Same PROCEDURE: Incision and drainage right knee. Irrigation and debridement right knee. Polyethylene exchange right knee. Wound closure/retinaculum repair. SURGEON: Devin Mccarthy D.O. Beader: Devin Cortes PAC ANESTHESIA: GETA ESTIMATED BLOOD LOSS: 100cc COMPLICATIONS: none DRAINS: hemovac SPECIMENS: fluid cultures x 2 FINDING: as above DESCRIPTION OF PROCEDURE: Jane is a 60-year-old female who is status post revision right total knee arthroplasty greater than 4 weeks ago. She was doing well until last Thursday when she felt something pop and tear in the anterior aspect of her right knee while transferring from the toilet. Later that day patient states she noticed bleeding from the midportion of her incision. This would stop and then return. Patient had progressive increase in pain in the right knee and eventually developed purulent drainage in fevers from the same part of her incision. She presented to the ER where she was admitted for an acute right total knee infection. Recommendations for I and D of the knee as well as polyethylene exchange and exploration of the joint were made to the patient. All risks, benefits, alternatives to the planned procedure were discussed with her. She did understand these risks and elected to proceed with the planned surgery. On the day of her surgery she 5 in the preop holding area and the right lower extremity was marked as correct operative side. She was taken the operating room where induction of general anesthesia was performed. She was positioned supine with all bony prominences well padded. The right lower extremity was prepped and draped in sterile fashion. Antibiotics were not given until cultures were taken. She did receive vancomycin 1 g IV after cultures were taken in the OR. Patient has pre-existing incision was marked with a marking pen. The right lower extremity was exsanguinated and the tourniquet was inflated. Her existing incision was then incised with a 10 blade in its entirety. The area of communicating fistula to the skin was ellipsed out with a 15 blade. Abundant purulent fluid as well as seroma and serous fluid were immediately evacuated from the knee. Cultures were taken. Bridge traumatic medial retinacular tear was noted. The patient had essentially torn her entire medial retinaculum/extensor mechanism repair from her prior procedure and this was the likely cause of her drainage and eventual infection. At this point a thorough debridement was performed. Skin, subcutaneous tissue, synovium, tendon and bone were debrided with forceps, scalpel, rongeur, curettes. A thorough debridement was performed to healthy appearing tissue and no necrotic tissue was remaining at the time of wound closure. The knee irrigated with 6 L of sterile saline. The patient's existing polyethylene insert was removed with a mallet and osteotome. The femoral and tibial components were checked for stability and no loosening or malrotation was identified. Next a 0.03% Betadine solution was inserted into the knee and allowed to soak for 3 minutes. A manual scrub of the metal components was performed with a sterile scrub brush and Betadine. After Betadine scrub and soak the knee was irrigated with an additional 3 L of sterile saline for a total of 9 L. the femoral and tibial components were then dried. Collateral ligament retractors were placed and a new polyethylene insert was placed. Trials were performed. The patient did have increased attenuation of her soft tissues from her prior surgery. A 22 mm PS poly gave her the best stability and this was inserted and seated. The knee was reduced and placer range of motion. She did reach full extension and 120 of flexion with a no thumbs technique. Patella tracked well within the femoral trochlea. A Hemovac drain was placed. Stimulant antibiotic beads, dissolvable , were placed into the suprapatellar pouch and medial and lateral gutters of the right knee. The retinaculum was then closed with interrupted 1. PDS sutures. A watertight closure was achieved. In the area of the for superior pole of the patella patient did have attenuation of the capsule and VMO repair was tenuous in this area. Additional tension relieving sutures were placed here. Subcutaneous tissues and space were then closed in layered fashion with 0 Vicryl and 2 0 Vicryl interrupted sutures. 0 Prolene sutures, vertical mattress were used to close the skin. An incisional wound VAC was applied at the end of the case. Patient was placed in a bulky compressive dressing and knee immobilizer. Patient did tolerate the procedure well and was transferred to the PACU in stable condition. Postop plan for the patient is to continue IV vancomycin until final cultures are obtained. Patient will likely need a PICC line and 6 weeks of IV antibiotics She may be weight-bearing as tolerated in extension. Knee immobilizer will be worn at all times when out of bed. No flexion of the knee or ambulating without the immobilizer in place for 6 weeks. Enteric-coated aspirin 325 mg p.o. twice daily for DVT prophylaxis, Bertin's and SCDs. SAMUEL Rodriguez, was the operative per diem physical therapist assistant during this case. Due to the complex nature of the procedure and under direct supervision his assistance was required for patient positioning, prepping and draping, soft tissue retraction, manipulation of the extremity, wound closure and application of dressings postoperatively Implants: Styker 22mm TS poly insert for 3 tibial baseplate
[2016-05-09] MEDS ORDERED: DIPHENHYDRAMINE 25 MG CAP PO PRN (14:33)
[2016-05-09] MEDS ORDERED: DIPHENHYDRAMINE 50 MG/ML VIAL IV PRN (14:33)
[2016-05-09] MEDS ORDERED: HYDROmorphone 1 MG INJECTION ONE ×2 (14:49→15:36)
[2016-05-09] MEDS ORDERED: Pharmacy Change IV Fluid Rate to KVO XX SCH (15:00)
--- NOTE | 2016-05-09 15:36 | DIRPT ---
CLINICAL DATA: Infected right knee replacement. Status post poly-exchange. Initial encounter. EXAM: PORTABLE RIGHT KNEE - 1-2 VIEW COMPARISON: Plain films of the right knee 05/08/2016. FINDINGS: There is gas in the soft tissues from surgery and a new surgical drain is in place. Antibiotic impregnated beads are seen in the patellofemoral compartment and along the lateral aspect of the joint line. Plate and screw fixation of a remote medial tibial fracture is identified. IMPRESSION: Revision of right knee replacement and placement of antibiotic impregnated beads for infection. No acute abnormality. Electronically Signed By: Velasquez Ramos M.D. On: 05/09/2016 15:33
[2016-05-09] MEDS: HYDROmorphone 1 MG INJECTION IV PRN ×3 (17:31→23:59)
[2016-05-09] MEDS: Aspirin (Orange Enteric Coated) 325 mg tab PO SCH (17:44)
[2016-05-09] MEDS: CALCIUM CARBONATE + VITAMIN D 500 MG TAB PO SCH (17:45)
[2016-05-09] MEDS: PANTOPRAZOLE 40 MG TAB PO SCH (17:45)
[2016-05-09] MEDS: SODIUM CHLORIDE 0.9% 3 ML FLUSH FLUSH SCH (17:45)
--- NOTE | 2016-05-09 17:52 | SC.ANESPOS ---
Post-Anesthesia Note LOC: Fully Awake Post-Anesthesia Assessment: Awake, Returned to Baseline, Hemodynamically Stable , Pain Control Adequate Phase I & II Recovery Complete: Yes Apparent Anesthesia Complication: No : N PACU Discharge Time: 16:15 - Vital Signs Blood Pressure: 141/63 Pulse: 95 Resp Rate: 18 O2 Sat: 100 Temp: 98.7 F - Comments Anesthesia Discharge Time Report Time 16:15
[2016-05-09] MEDS: DOCUSATE-SENNA CONCENTRATE TAB PO SCH (21:37)
[2016-05-09] MEDS: Docusate Sodium 100 MG CAP PO SCH (22:29)
[2016-05-10] MEDS: IPRATROPIUM 0.02% 2.5 ML NEB NEB SCH ×4 (01:50→20:03)
[2016-05-10] MEDS: NS 1,000 ML IV SCH ×3 (02:17→21:17)
[2016-05-10] MEDS: NICOTINE 7 MG PATCH TOP SCH (02:20)
[2016-05-10] MEDS: HYDROmorphone 1 MG INJECTION IV PRN ×4 (03:37→11:24)
[2016-05-10 06:00] LABS: MPV 10.2 fL (7.4-10.4)
[2016-05-10] MEDS: SODIUM CHLORIDE 0.9% 3 ML FLUSH FLUSH SCH ×2 (06:34→17:39)
[2016-05-10] MEDS: MetFORMIN 500 MG IMMED RELEASE TAB PO SCH ×2 (06:35→17:46)
[2016-05-10] MEDS: REGULAR INSULIN 100 UNITS/ML - 3 ML VIAL SQ SCH ×4 (06:35→21:04)
[2016-05-10] MEDS: PANTOPRAZOLE 40 MG TAB PO SCH ×2 (06:35→17:46)
[2016-05-10 06:50] LABS: BLOOD UREA NITROGEN 8 MG/DL (7-17); CALCIUM 9.3 MG/DL (8.4-10.2); CALCULATED OSMOLALITY 269 MOs/Kg (270-290); CHLORIDE 108 mEq/L (98-107); GLUCOSE 129 MG/DL (70-99); SODIUM LEVEL 140 mEq/L (137-146)
[2016-05-10] MEDS: OXYCODONE HCL 5 MG TABLET PO PRN ×3 (07:45→21:03)
[2016-05-10] MEDS ORDERED: Remove Transdermal Scopolamine Patch after 24 hours ONE (08:00)
[2016-05-10] MEDS: ALBUTEROL 0.083% 3 ML NEB NEB SCH ×2 (08:20→20:09)
[2016-05-10] MEDS: BUDESONIDE 0.5 MG NEB NEB SCH ×2 (08:21→20:10)
--- NOTE | 2016-05-10 08:29 | PCM.ORTHBL ---
Addendum entered and electronically signed by Elmer Mercado PA 05/10/16 08:35 : Should remain in knee immobilizer at all times. No knee flexion for 6 weeks. Original Note: - Subjective Post Op Day: 1 Daily Assessment - Patient: Reports: No new complaints, Awake Alert Oriented x4 , Feels better, Tolerating Regular Diet, Voiding without difficulty, Afebrile, Other (denies chest pain). Denies: Ambulating with Physical Therapist (to begin today), Shortness of breath, Nausea, Vomiting - Objective / Physical Exam Vital Signs: Temperature: 98.7 F (05/09/16 17:52) HR: 90 (05/10/16 06:00)RR: 16 (05/10/16 06: 00) BP: 135/60 (05/10/16 06:00)Pulse Ox: 98 (05/10/16 08:21) General: Alert, Oriented x3, Cooperative, No acute distress, Well appearing Musculoskeletal / Extremities: 2 plus Dorsalis Pedis Pulse, Dressing Clean/Dry/ Intact. negative: Tenderness (no calf tenderness) Neurological: Positive Sensation First Dorsal Web Space, Sensation to light touch intact, Extensor Hallicus Longus Intact, Flexor Hallicus Longus Intact, Dorsiflexion Intact, Plantarflexion Intact - Assessment and Plan (1) Infection associated with internal right knee prosthesis Acute T84.53XA - INFECT/INFLM REACTION DUE TO INTERNAL R KNEE PROSTH, INIT E Plan: POD#1 s/p I&D of right TKA with poly exchange PT/OT/WBAT in knee immobilizer Continue pain management TEDS/SCDS/ECASA 325mg BID for 30 days post-op for DVT prophylaxis Continue antibiotics; on Vancomycin. Awaiting culture results. Will need PICC line prior to d/c. D/C planning. Plan for home with HH/PT <Elmer Mercado - Last Filed: 05/10/16 08:27> - Objective / Physical Exam Vital Signs: Temperature: 98.7 F (05/09/16 17:52) HR: 90 (05/10/16 06:00)RR: 16 (05/10/16 06: 00) BP: 135/60 (05/10/16 06:00)Pulse Ox: 98 (05/10/16 08:21) - Assessment and Plan (1) Wound infection after surgery Acute T81.4XXA - INFECTION FOLLOWING A PROCEDURE, INITIAL ENCOUNTER Present on Admission: Yes initial encounter T81.4XXA - Infection following a procedure, initial encounter Additional Notes: Pt seen and examined today. Agree with above. Pain controlled. No other c/o AVSS R knee incisional wound vac in place and functioning. RLE NVI. No calf TTP POD#1 s/p I&D, poly exchange, retinaculum repair right knee Acute TKA infection morbid obesity -knee immobilizer at all times. No flexion. WBAT with assistive device -TEDS/SCDs/ECASA 325mg BID x 30 days -continue Vancomycin until final cultures. Will need PICC line and 6 weeks IV abx <Devin Mccarthy - Last Filed: 05/10/16 10:42>
[2016-05-10] MEDS ORDERED: OXYCODONE HCL 5 MG TABLET PO PRN (10:35)
[2016-05-10] MEDS: Aspirin (Orange Enteric Coated) 325 mg tab PO SCH ×2 (11:01→17:46)
[2016-05-10] MEDS: FENOFIBRATE 145 MG TAB PO SCH (11:02)
[2016-05-10] MEDS: TOLTERODINE 4 MG LA CAP PO SCH (11:03)
[2016-05-10] MEDS: AZATHIOPRINE 50 MG TAB PO SCH (11:03)
[2016-05-10] MEDS: VITAMINS, MULTIPLE CAP PO SCH (11:06)
[2016-05-10] MEDS: CALCIUM CARBONATE + VITAMIN D 500 MG TAB PO SCH ×2 (11:06→17:46)
[2016-05-10] MEDS: MUPIROCIN 2% OINT 22 GM TUBE NAS SCH ×2 (11:08→21:06)
[2016-05-10] MEDS: CEFTRIAXONE 2 GM in D5W 100 ML IV SCH (13:47)
--- NOTE | 2016-05-10 15:45 | GENMEDPROG ---
Subjective Note: Patient in bed responsive follows commands. Still fair amount of right knee pain. Patient denies and difficulties breathing cough or phlegm production. Tolerating diet. Slow progress with physical therapy. Notes Reviewed: Yes Events from last night noted and discussed with Clinical Staff Current Medication List: Reviewed Currently: Reports: Cough, Wheezing, SANCHEZ, Sputum, Tobacco Use/Hx, Reflux Sx DVT Prophylaxis: Yes - Physical Examination Vital Signs and I&O: Last Vital Signs Temp 98.7 F 05/09/16 17:52 Pulse 90 05/10/16 06:00 Resp 16 05/10/16 06:00 BP 135/60 05/10/16 06:00 Pulse Ox 95 05/10/16 11:33 Oxygen Pulse Oxygen Saturation 95 O2 Device Nasal Cannula Oxygen Flow Rate 2 Fraction of Inspired Oxygen ( 25 FIO2) Intake & Output 05/07/16 05/08/16 05/09/16 05/10/16 23:59 23:59 23:59 23:59 Intake Total 1820 1422 Output Total 640 60 Balance 1180 1362 Patient's weight 127.142 kg 127.063 kg General: Alert, Oriented x3, Cooperative, No acute distress, Well appearing HEENT: Normal, PERRLA, EOMI, Anicteric Sclera Neck: Non-tender, Limited range of motion Lymphatics: Normal Respiratory: Diminished, Rhonchi Cardiovascular: Regular rate, Normal S1, Normal S2, Murmurs GI: Normal bowel sounds, Soft, Non tender, No hepatospenomegaly, No masses Extremities/Musculoskeletal: Edema, Cyanosis, DJD Skin: Warm,Dry and Intact, No rashes, No breakdown, No significant lesion Neurological: Normal speech, Cranial nerves 3-12 NL, Reflexes 2+, Strength Psych/Mental Status: Anxious Lab/DI/Studies Reviewed: Allergies Penicillins Allergy (Verified 05/09/16 00:39) Hives* I Microbiology 05/08/16 23:35 Urine - Clean Catch - Midstream Urine Culture - Final Contaminated: Normal skin yessica present 05/09/16 02:15 Nares MRSA DNA Surveillance Screen - Final POSITIVE for MRSA DNA -------- In the absence of signs/symptoms of infection, nasal colonization with MRSA is not an indication of vancomycin therapy. Vancomycin is NOT EFFECTIVE for eradication of MRSA nasal colonization. 05/09/16 02:15 Nares MSSA Surveillance Screen (PCR) - Final POSITIVE for Staphylococcus aureus DNA -------- In the absence of signs/symptoms of infection, nasal colonization with MSSA is not an indication of vancomycin therapy. Vancomycin is NOT EFFECTIVE for eradication of MSSA nasal colonization. Abnormal Lab Results 05/09/16 05/09/16 05/10/16 17:43 21:18 05:40 WBC RBC Hgb Hct MCHC RDW Chloride 108 H Glucose 129 H POC Capillary Glucose 120 H 114 H Calculated Osmolality 269 L 05/10/16 05/10/16 05/10/16 05:40 06:22 11:52 WBC 11.4 H RBC 3.32 L Hgb 9.8 L D Hct 31.4 L MCHC 31.3 L RDW 16.4 H Chloride Glucose POC Capillary Glucose 127 H 143 H Calculated Osmolality - Assessment (1) Infection associated with internal right knee prosthesis Acute T84.53XA - INFECT/INFLM REACTION DUE TO INTERNAL R KNEE PROSTH, INIT Qualifiers: Encounter type: initial encounter Qualified Code(s): T84.53XA - Infection and inflammatory reaction due to internal right knee prosthesis, initial encounter Comment/Plan: Status post ortho cleanup. Culture growing gram-negative rods. Continue antibiotics and local care. (2) Non-insulin dependent type 2 diabetes mellitus Acute E11.9 - TYPE 2 DIABETES MELLITUS WITHOUT COMPLICATIONS Comment/Plan: Continue ADA diet Accu-Cheks and sliding scale. (3) Obstructive sleep apnea Acute G47.33 - OBSTRUCTIVE SLEEP APNEA (ADULT) (PEDIATRIC) Comment/Plan: Continue nocturnal CPAP. (4) Post-op pain Acute G89.18 - OTHER ACUTE POSTPROCEDURAL PAIN Comment/Plan: Up -titrate narcotic analgesics to keep pain under better control (5) Anemia Acute D64.9 - ANEMIA, UNSPECIFIED Qualifiers: Anemia type: unspecified type Iron deficiency anemia type: I Vitamin B12 deficiency anemia type: V Folate deficiency anemia type: F Bone marrow failure anemia type: B Hemolytic anemia type: H Other causes of anemia: O Qualified Code(s): D64.9 - Anemia, unspecified Comment/Plan: Monitor counts transfuse as needed and indicated Case Care Discussed with: Patient, Consultants, Family, Nursing Staff, [employer] Education/Counseling Given To: Patient Education/Counseling Given Regarding: Diagnosis, Treatment, Prognosis, Follow Up Total Time: 45 min . Critical Care: No Code: 86403 (12+)
[2016-05-10] MEDS: DOCUSATE-SENNA CONCENTRATE TAB PO SCH (21:07)
[2016-05-10] MEDS: Docusate Sodium 100 MG CAP PO SCH (21:08)
[2016-05-10] MEDS: SENNA CONCENTRATE TAB PO SCH (21:15)
[2016-05-11] MEDS: IPRATROPIUM 0.02% 2.5 ML NEB NEB SCH ×4 (01:27→19:52)
[2016-05-11] MEDS: NS 1,000 ML IV SCH ×3 (01:42→18:30)
[2016-05-11] MEDS: NICOTINE 7 MG PATCH TOP SCH ×2 (01:45→21:24)
[2016-05-11] MEDS: HYDROmorphone 1 MG INJECTION IV PRN ×3 (01:54→21:24)
[2016-05-11] MEDS ORDERED: CHAPSTICK LIP BALM ONE (05:37)
[2016-05-11] MEDS: OXYCODONE HCL 5 MG TABLET PO PRN ×3 (05:50→21:22)
[2016-05-11] MEDS: PANTOPRAZOLE 40 MG TAB PO SCH ×2 (05:50→17:20)
[2016-05-11] MEDS: REGULAR INSULIN 100 UNITS/ML - 3 ML VIAL SQ SCH ×4 (05:52→20:36)
[2016-05-11] MEDS: MetFORMIN 500 MG IMMED RELEASE TAB PO SCH ×2 (05:55→17:18)
[2016-05-11] MEDS: SODIUM CHLORIDE 0.9% 3 ML FLUSH FLUSH SCH ×2 (06:02→17:20)
--- NOTE | 2016-05-11 07:50 | PCM.ORTHBL ---
- Subjective Post Op Day: 2 Daily Assessment - Patient: Reports: No new complaints, Awake Alert Oriented x4 , Still having pain, Pain is less, Tolerating Regular Diet, Voiding without difficulty, Afebrile, Ambulating with Physical Therapist, Flatus, No Bowel Movement, Other (denies chest pain). Denies: Shortness of breath, Nausea, Vomiting - Objective / Physical Exam Vital Signs: Temperature: 99.5 F (05/11/16 06:00) HR: 93 (05/11/16 06:00)RR: 18 (05/11/16 06: 00) BP: 110/67 (05/11/16 06:00)Pulse Ox: 98 (05/11/16 06:00) General: Alert, Oriented x3, Cooperative, No acute distress, Well appearing Musculoskeletal / Extremities: 2 plus Dorsalis Pedis Pulse, Dressing Clean/Dry/ Intact. negative: Tenderness (no calf tenderness) Neurological: Positive Sensation First Dorsal Web Space, Sensation to light touch intact, Extensor Hallicus Longus Intact, Flexor Hallicus Longus Intact, Dorsiflexion Intact, Plantarflexion Intact Laboratory/Diagnostics Reviewed: 05/11/16 05:26 05/10/16 05:40 - Assessment and Plan (1) Infection associated with internal right knee prosthesis Acute T84.53XA - INFECT/INFLM REACTION DUE TO INTERNAL R KNEE PROSTH, INIT initial encounter T84.53XA - Infection and inflammatory reaction due to internal right knee prosthesis, initial encounter Plan: POD#2 s/p I&D of right TKA with poly exchange PT/OT/WBAT in knee immobilizer. To remain in immobilizer brace at all times. No knee flexion for 6 weeks Continue pain management TEDS/SCDS/ECASA 325mg BID for 30 days post-op for DVT prophylaxis Cultures and sensitivities have been reviewed. Continue IV antibiotics. Patient will need 6 weeks IV antibiotics. PICC line to be placed. She will also need ID consult in 2 weeks D/C planning, plan possible for tomorrow.
[2016-05-11] MEDS: ALBUTEROL 0.083% 3 ML NEB NEB SCH ×2 (08:07→19:53)
[2016-05-11] MEDS: BUDESONIDE 0.5 MG NEB NEB SCH ×2 (08:15→19:54)
[2016-05-11] MEDS: Aspirin (Orange Enteric Coated) 325 mg tab PO SCH ×2 (08:45→17:19)
[2016-05-11] MEDS: TOLTERODINE 4 MG LA CAP PO SCH (08:46)
[2016-05-11] MEDS: FENOFIBRATE 145 MG TAB PO SCH (08:46)
[2016-05-11] MEDS: AZATHIOPRINE 50 MG TAB PO SCH (08:47)
[2016-05-11] MEDS: VITAMINS, MULTIPLE CAP PO SCH (08:47)
[2016-05-11] MEDS: MUPIROCIN 2% OINT 22 GM TUBE NAS SCH ×2 (08:48→20:36)
[2016-05-11] MEDS: CALCIUM CARBONATE + VITAMIN D 500 MG TAB PO SCH ×2 (08:48→17:19)
[2016-05-11] MEDS: CEFTRIAXONE 2 GM in D5W 100 ML IV SCH (13:07)
--- NOTE | 2016-05-11 16:23 | GENMEDPROG ---
Subjective Note: Patient in bed responsive follows commands. Denies and difficulties breathing cough phlegm production. Still fair amount of discomfort involving right knee. Denies any fevers or chills. Slow progress with physical therapy Notes Reviewed: Yes Events from last night noted and discussed with Clinical Staff Current Medication List: Reviewed Currently: Reports: Cough, Wheezing, SANCHEZ, Sputum, Tobacco Use/Hx, Reflux Sx DVT Prophylaxis: Yes - Physical Examination Vital Signs and I&O: Last Vital Signs Temp 98.1 F 05/11/16 14:00 Pulse 88 05/11/16 14:00 Resp 18 05/11/16 14:00 BP 112/64 05/11/16 14:00 Pulse Ox 97 05/11/16 14:00 Oxygen Pulse Oxygen Saturation 97 O2 Device Room Air Oxygen Flow Rate 2 Fraction of Inspired Oxygen ( 25 FIO2) Intake & Output 05/08/16 05/09/16 05/10/16 05/11/16 23:59 23:59 23:59 23:59 Intake Total 1820 2623 240 Output Total 640 60 Balance 1180 2563 240 Patient's weight 127.142 kg 127.063 kg 128.168 kg General: Alert, Oriented x3, Cooperative, No acute distress, Well appearing HEENT: Normal, PERRLA, EOMI, Anicteric Sclera Neck: Non-tender, Limited range of motion Lymphatics: Normal Respiratory: Diminished, Rhonchi Cardiovascular: Regular rate, Normal S1, Normal S2, Murmurs GI: Soft, Non tender, No hepatospenomegaly, No masses, Obese Extremities/Musculoskeletal: Edema, DJD Skin: No rashes, No breakdown, No significant lesion Neurological: Normal speech, Strength at 5/5 X4 ext, Cranial nerves 3-12 NL Psych/Mental Status: Anxious Microbiology 05/08/16 23:35 Urine - Clean Catch - Midstream Urine Culture - Final Contaminated: Normal skin yessica present 05/09/16 02:15 Nares MRSA DNA Surveillance Screen - Final POSITIVE for MRSA DNA -------- In the absence of signs/symptoms of infection, nasal colonization with MRSA is not an indication of vancomycin therapy. Vancomycin is NOT EFFECTIVE for eradication of MRSA nasal colonization. 05/09/16 02:15 Nares MSSA Surveillance Screen (PCR) - Final POSITIVE for Staphylococcus aureus DNA -------- In the absence of signs/symptoms of infection, nasal colonization with MSSA is not an indication of vancomycin therapy. Vancomycin is NOT EFFECTIVE for eradication of MSSA nasal colonization. Lab/DI/Studies Reviewed: 05/11/16 05:26 05/10/16 05:40 Microbiology 05/08/16 23:35 Urine - Clean Catch - Midstream Urine Culture - Final Contaminated: Normal skin yessica present 05/09/16 02:15 Nares MRSA DNA Surveillance Screen - Final POSITIVE for MRSA DNA -------- In the absence of signs/symptoms of infection, nasal colonization with MRSA is not an indication of vancomycin therapy. Vancomycin is NOT EFFECTIVE for eradication of MRSA nasal colonization. 05/09/16 02:15 Nares MSSA Surveillance Screen (PCR) - Final POSITIVE for Staphylococcus aureus DNA -------- In the absence of signs/symptoms of infection, nasal colonization with MSSA is not an indication of vancomycin therapy. Vancomycin is NOT EFFECTIVE for eradication of MSSA nasal colonization. - Assessment (1) Infection associated with internal right knee prosthesis Acute T84.53XA - INFECT/INFLM REACTION DUE TO INTERNAL R KNEE PROSTH, INIT Qualifiers: Encounter type: initial encounter Qualified Code(s): T84.53XA - Infection and inflammatory reaction due to internal right knee prosthesis, initial encounter Comment/Plan: Culture shows Serratia susceptible multiple antibiotics. PICC line will be inserted. Based on ortho recommendation patient requires 6 weeks of IV Rocephin and 2 weeks of p.o. Levaquin (2) Non-insulin dependent type 2 diabetes mellitus Acute E11.9 - TYPE 2 DIABETES MELLITUS WITHOUT COMPLICATIONS Comment/Plan: Continue ADA diet Accu-Cheks and sliding scale. (3) Anemia Acute D64.9 - ANEMIA, UNSPECIFIED Qualifiers: Anemia type: unspecified type Iron deficiency anemia type: I Vitamin B12 deficiency anemia type: V Folate deficiency anemia type: F Bone marrow failure anemia type: B Hemolytic anemia type: H Other causes of anemia: O Qualified Code(s): D64.9 - Anemia, unspecified Comment/Plan: Monitor counts transfuse as needed and indicated (4) Post-op pain Acute G89.18 - OTHER ACUTE POSTPROCEDURAL PAIN Comment/Plan: Up -titrate narcotic analgesics to keep pain under better control (5) Obstructive sleep apnea Acute G47.33 - OBSTRUCTIVE SLEEP APNEA (ADULT) (PEDIATRIC) Comment/Plan: Continue nocturnal CPAP. Case Care Discussed with: Patient, Consultants, Nursing Staff, Geoscience Technician Education/Counseling Given To: Patient Education/Counseling Given Regarding: Diagnosis, Treatment, Prognosis, Follow Up Total Time: 44 min . Critical Care: No Code: 39899 (12+)
[2016-05-11] MEDS: PROBIOTIC BLEND TAB PO SCH (17:19)
[2016-05-11] MEDS: LEVOFLOXACIN 750 MG TAB PO SCH (17:19)
--- NOTE | 2016-05-11 19:20 | PCM.DCS92 ---
- Final/Secondary Discharge Diagnosis (1) Infection associated with internal right knee prosthesis Acute T84.53XA - INFECT/INFLM REACTION DUE TO INTERNAL R KNEE PROSTH, INIT initial encounter T84.53XA - Infection and inflammatory reaction due to internal right knee prosthesis, initial encounter Discharge Disposition: Home Discharge Condition: Stable Cognitive Discharge Status: Unimpaired Fuctional Discharge Status: Walker Assistance, Recent lower extremety joint replacement, Post-op Weakness Physician Follow up/Referrals: Von Leslie MD [Primary Care Provider] - One Week Devin Mccarthy DO [Staff Physician] - Two Weeks Disease, Infectious [Other] - Two Weeks Home Medications/ New Prescriptions: New Aspirin (OrangeEnteric Coated) [Ecotrin] 325 mg PO BID #60 tab Oxycodone Immediate Release [Oxycodone Immediate Release (OxyIR)] 5 - 10 mg PO Q4H PRN #40 tab PRN Reason: Pain Senna Concentrate [Senokot] 2 tab PO QHS #60 tablet Ceftriaxone [Rocephin] 2 gm IV Q24H #14 sdv Levofloxacin [Levaquin] 750 mg PO DAILY #12 tab No Action Estrogens [Premarin] 0.625 mg PO DAILY Tiotropium [Spiriva Handihaler] 18 mcg INH DAILY Beclomethasone Dipropionate [QVar 80 (8.7 gm inhaler)] 2 puff INH BID MetFORMIN (Immediate Release) [GLUCOPHAGE Immed Release] 500 mg PO BID Hydroxyzine HCl 25 mg PO TID PRN PRN Reason: Hives Fesoterodine Fumarate [Toviaz] 8 mg PO DAILY Azathioprine [Azasan] 100 mg PO DAILY Fenofibric Acid (Choline) [Trilipix] 135 mg PO DAILY Albuterol Sulfate [Proventil Hfa] 2 puff INH BID Multivitamin [One Daily] 1 each PO DAILY Aspirin (OrangeEnteric Coated) [Ecotrin] 325 mg PO BIDWM #60 tablet Celecoxib (anti-inflammatory) [Celebrex] 200 mg PO BIDWM #28 capsule Oxycodone Immediate Release [Oxycodone Immediate Release (OxyIR)] 5 mg PO Q4 PRN #60 tablet PRN Reason: Mild To Moderate Pain Discharge Home Medication List Beclomethasone Dipropionate [QVar 80 (8.7 gm inhaler)] 2 puff INH BID 01/01/13 [ History Confirmed 05/09/16 Last Taken 05/08/16] Estrogens [Premarin] 0.625 mg PO DAILY 01/01/13 [History Confirmed 05/09/16 Last Taken 05/08/16] Tiotropium [Spiriva Handihaler] 18 mcg INH DAILY 01/01/13 [History Confirmed Last Taken 05/08/16] MetFORMIN (Immediate Release) [GLUCOPHAGE Immed Release] 500 mg PO BID 07/08/13 [History Confirmed 05/09/16 Last Taken 05/08/16] Albuterol Sulfate [Proventil Hfa] 2 puff INH BID 02/12/16 [History Confirmed Last Taken 05/08/16] Azathioprine [Azasan] 100 mg PO DAILY 02/12/16 [History Confirmed 05/09/16 Last Taken 05/08/16] Fenofibric Acid (Choline) [Trilipix] 135 mg PO DAILY 02/12/16 [History Confirmed 05/09/16 Last Taken 05/08/16] Fesoterodine Fumarate [Toviaz] 8 mg PO DAILY 02/12/16 [History Confirmed Last Taken 05/08/16] Hydroxyzine HCl 25 mg PO TID PRN 02/12/16 [History Confirmed 05/09/16 Last Taken 05/08/16] Multivitamin [One Daily] 1 each PO DAILY 03/28/16 [History Confirmed 05/09/16 Last Taken 05/08/16] Aspirin (OrangeEnteric Coated) [Ecotrin] 325 mg PO BIDWM #60 tablet 04/04/16 [ Rx Confirmed 05/09/16 Last Taken 05/08/16] Aspirin (OrangeEnteric Coated) [Ecotrin] 325 mg PO BID #60 tab 05/11/16 [Rx Last Taken Unknown] Oxycodone Immediate Release [Oxycodone Immediate Release (OxyIR)] 5 - 10 mg PO Q4H PRN #40 tab 05/11/16 [Rx Last Taken Unknown] Senna Concentrate [Senokot] 2 tab PO QHS #60 tablet 05/11/16 [Rx Last Taken Unknown] Ceftriaxone [Rocephin] 2 gm IV Q24H #14 sdv 05/12/16 [Rx Last Taken Unknown] Levofloxacin [Levaquin] 750 mg PO DAILY #12 tab 05/13/16 [Rx Last Taken Unknown] Additional Instructions: DATE: 05/11/16 Post Hospital Stay (Discharge) Joint Precautions Knee Joint Precautions For the safety of your new knee, you should follow these precautions, especially during the first four weeks after surgery. n DO stay active. When your therapist says you are ready, you should take daily walks, increasing your distance as tolerated. n DO use a cane or walker after your knee replacement if you need one. n DO step with the surgery leg first. n DO NOT place a pillow under your knee. n DO NOT sit on low chairs. A chair with arms will allow you to get up and down easier. n DO NOT turn or twist your knee for six to eight weeks. n DO NOT sit longer than one hour at a time as this may make the muscles around your knee stiffen. n DO NOT step until your walker is steady on the floor or ground. n DO NOT do any of the following activities until cleared by your surgeon: 1. Return to work 2. Drive a car 3. Participate in sports 4. Engage in sex 5. Take a tub bath Diet at Discharge: As Tolerated, Diabetic Activity: As Tolerated (in knee immobilizer brace), No Heavy Lifting, No Driving Call Office For: Worsening Symptoms, Wound is Draining Pus, Fever over 101 F, Fever over 100.5, Wound is Painful, Wound is Red, Weight Gain (see below), Pain Uncontrolled By Meds, Other (See Details) Discontinue use of:: Alcohol, All Illegal Substances, All Types of Tobacco - DC Summary Notes Hospital Course Note:: Discharge summary on patient named JESSICA MORILLO admitted to [facility] on 05/09/16 by Devin Mccarthy DO. Date of discharge is [05/13/16]. Afebrile. Hospital course and surgery uneventful. Progressing with PT. WBAT in knee immobilizer. No flexion of the knee for 6 weeks post-op. Continue pain management. Wound vac to be removed in 1 day then Aquacel dressing to be placed for 7 days. Continue Antibiotics, will need 6 weeks of IV antibiotics. Will also need CBC, BMP, Sed Rate and CRP every 2 weeks. To follow-up with ID in 2 weeks or earlier as needed. To follow-up in office in 2 weeks or earlier as needed. Wound Care Surgical Site: Yes Site Description (if applicable): right knee Dressing/Site Care (if applicable): Wound vac to remain in place until tomorrow , then an Aquacel dressing to be placed for an additional 7 days. Medical Equipment (Order must still be written on paper): Walker, Wheelchair Remove Transdermal Scopalamine patch if present: YES Medication Instructions: Take Stool Softener, Rx on Chart Continue Ice Packs/Ice Machine to Operative Area: Yes Activity as Tolerated: Yes Knee Immobilizer: YES Current Dressing: Other (wound vac) Dressing Care: Keep Wound Clean & Dry, No Tub Baths, Do Not Change Dressing ( Wound vac to remain in place until tomorrow, then Aquacel dressing to be placed for an additional 7 days.) - Consults/Home Health Outpatient Consults: Home Health, Physical Therapy - Physical Exam Vital Signs: Initial Vitals Temperature 100.5 F 05/08/16 21:58 Pulse Rate 106 05/08/16 21:58 Respiratory Rate 20 05/08/16 21:58 Blood Pressure 159/71 05/08/16 21:58 Pulse Oxygen Saturation 97 05/08/16 21:58 Constitutional: No apparent distress, Alert, Well appearing Oriented to: Time, Person, Place - HEENT Head: Normal - Musculoskeletal Extremities: Pedal Pulse, Other (wound vac in place). negative: Calf Tenderness - Neurologic Memory Impaired: Normal Motor Function: Normal Cranial Nerve: Normal Cerebellar: Normal Mood Description: Normal Thought: Coherent Perception: Normal
[2016-05-11] MEDS: DOCUSATE-SENNA CONCENTRATE TAB PO SCH (20:35)
[2016-05-12] MEDS: SENNA CONCENTRATE TAB PO SCH ×2 (00:09→20:34)
[2016-05-12] MEDS: HYDROmorphone 1 MG INJECTION IV PRN ×3 (00:21→20:30)
[2016-05-12] MEDS: NS 1,000 ML IV SCH ×3 (01:25→22:33)
[2016-05-12] MEDS: IPRATROPIUM 0.02% 2.5 ML NEB NEB SCH ×4 (01:56→20:04)
[2016-05-12] MEDS: OXYCODONE HCL 5 MG TABLET PO PRN ×4 (02:15→22:31)
[2016-05-12] MEDS: SODIUM CHLORIDE 0.9% 3 ML FLUSH FLUSH SCH ×2 (04:45→17:44)
--- NOTE | 2016-05-12 06:37 | PCM.ORTHBL ---
- Subjective Post Op Day: 3 Daily Assessment - Patient: Reports: No new complaints, Awake Alert Oriented x4 , Feels better, Tolerating Regular Diet, Voiding without difficulty, Afebrile, Ambulating with Physical Therapist. Denies: Shortness of breath, Nausea, Vomiting - Objective / Physical Exam Vital Signs: Temperature: 99.2 F (05/12/16 05:28) HR: 74 (05/12/16 05:28)RR: 18 (05/12/16 05: 28) BP: 113/68 (05/12/16 05:28)Pulse Ox: 100 (05/12/16 05:28) General: Alert, Oriented x3, Cooperative, No acute distress, Well appearing Musculoskeletal / Extremities: 2 plus Dorsalis Pedis Pulse, Dressing Clean/Dry/ Intact. negative: Tenderness (no calf tenderness) Neurological: Positive Sensation First Dorsal Web Space, Sensation to light touch intact, Extensor Hallicus Longus Intact, Flexor Hallicus Longus Intact, Dorsiflexion Intact, Plantarflexion Intact - Assessment and Plan (1) Infection associated with internal right knee prosthesis Acute T84.53XA - INFECT/INFLM REACTION DUE TO INTERNAL R KNEE PROSTH, INIT initial encounter T84.53XA - Infection and inflammatory reaction due to internal right knee prosthesis, initial encounter Plan: s/p I&D of right TKA with poly exchange PT/OT/WBAT in knee immobilizer. To remain in immobilizer at all times. NO knee flexion for 6 weeks postop Continue pain management TEDS/SCDS/ECASA 325mg BID for 30 days post-op for DVT prophylaxis Continue antibiotics. Will need 6 weeks IV antibiotics. Awaiting PICC line, to be placed today. Will need ID follow-up in 2 weeks D/c planning
[2016-05-12] MEDS: MetFORMIN 500 MG IMMED RELEASE TAB PO SCH ×2 (06:43→17:44)
[2016-05-12] MEDS: PANTOPRAZOLE 40 MG TAB PO SCH ×2 (06:44→17:44)
[2016-05-12] MEDS: REGULAR INSULIN 100 UNITS/ML - 3 ML VIAL SQ SCH ×4 (06:44→20:38)
[2016-05-12 07:16] LABS: MPV 9.1 fL (7.4-10.4)
[2016-05-12] MEDS: Aspirin (Orange Enteric Coated) 325 mg tab PO SCH ×2 (08:42→17:44)
[2016-05-12] MEDS: AZATHIOPRINE 50 MG TAB PO SCH (08:42)
[2016-05-12] MEDS: FENOFIBRATE 145 MG TAB PO SCH (08:42)
[2016-05-12] MEDS: MUPIROCIN 2% OINT 22 GM TUBE NAS SCH ×2 (08:42→20:31)
[2016-05-12] MEDS: TOLTERODINE 4 MG LA CAP PO SCH (08:42)
[2016-05-12] MEDS ORDERED: LIDOCAINE 1% 30 ML VIAL (PRESERVATIVE FREE) ONE (09:18)
[2016-05-12] MEDS: ALBUTEROL 0.083% 3 ML NEB NEB SCH ×2 (09:21→20:03)
[2016-05-12] MEDS: BUDESONIDE 0.5 MG NEB NEB SCH ×2 (09:30→20:04)
--- NOTE | 2016-05-12 10:33 | DIRPT ---
INDICATION: 60-year-old female with right knee MRSA infection EXAM: PICC LINE PLACEMENT WITH ULTRASOUND AND FLUOROSCOPIC GUIDANCE MEDICATIONS: None ANESTHESIA/SEDATION: None FLUOROSCOPY TIME: Fluoroscopy Time: 0 minutes 6 seconds COMPLICATIONS: None immediate. PROCEDURE: The patient was advised of the possible risks and complications and agreed to undergo the procedure. The patient was then brought to the angiographic suite for the procedure. The right arm was prepped with chlorhexidine, draped in the usual sterile fashion using maximum barrier technique (cap and mask, sterile gown, sterile gloves, large sterile sheet, hand hygiene and cutaneous antisepsis) and infiltrated locally with 1% Lidocaine. Ultrasound demonstrated patency of the right basilic vein, and this was documented with an image. Under real-time ultrasound guidance, this vein was accessed with a 21 gauge micropuncture needle and image documentation was performed. A 0.018 wire was introduced in to the vein. Over this, a 5 [place] single lumen power injectable PICC was advanced to the lower SVC/right atrial junction. Fluoroscopy during the procedure and fluoro spot radiograph confirms appropriate catheter position. The catheter was flushed and covered with sterile dressing. Catheter length: 41 cm IMPRESSION: Successful right arm power PICC line placement with ultrasound and fluoroscopic guidance. The catheter is ready for use. Signed, Joselo Rios MD [facility] Electronically Signed By: Joselo Rios M.D. On: 05/12/2016 10:30
[2016-05-12] MEDS: CALCIUM CARBONATE + VITAMIN D 500 MG TAB PO SCH ×2 (11:55→17:44)
[2016-05-12] MEDS: VITAMINS, MULTIPLE CAP PO SCH (11:55)
[2016-05-12] MEDS: PROBIOTIC BLEND TAB PO SCH ×2 (11:55→17:44)
--- NOTE | 2016-05-12 12:47 | GENMEDPROG ---
Chief Complaint: septic joint (knee) , DM-2, anemia, morbid obesity, TED, post-op pain Currently: Reports: Cough, Wheezing, SANCHEZ, Sputum, Tobacco Use/Hx, Reflux Sx DVT Prophylaxis: Yes - Physical Examination Vital Signs and I&O: Last Vital Signs Temp 99.2 F 05/12/16 05:28 Pulse 74 05/12/16 05:28 Resp 18 05/12/16 05:28 BP 113/68 05/12/16 05:28 Pulse Ox 100 05/12/16 05:28 Oxygen Pulse Oxygen Saturation 100 O2 Device Room Air Oxygen Flow Rate 2 Fraction of Inspired Oxygen ( 25 FIO2) Intake & Output 05/09/16 05/10/16 05/11/16 05/12/16 23:59 23:59 23:59 23:59 Intake Total 1820 2623 2731 1572 Output Total 640 60 Balance 1180 2563 2731 1572 Patient's weight 127.142 kg 127.063 kg 128.168 kg 129.472 kg General: Alert, Oriented x3, Cooperative, No acute distress, Well appearing HEENT: Normal, PERRLA, EOMI, Anicteric Sclera, Mucous membr. moist/pink Neck: Full range of motion, Normal Trachea alignment, Normal inspection, No Masses palpable, No Thyromegaly palpable Lymphatics: Normal Respiratory: Normal - CTA, Accessory Muscle Use, Diminished Cardiovascular: Regular rate and rhythm, Normal S1, Normal S2, Good Pedal Pulses GI: Normal bowel sounds, Soft, Non tender, No masses, Obese Extremities/Musculoskeletal: Normal pulses, DJD, FROM Skin: Warm,Dry and Intact, No rashes, No breakdown, No significant lesion Neurological: Normal Steady Gait, Normal speech, Strength at 5/5 X4 ext, Normal tone, Cranial nerves 3-12 NL Psych/Mental Status: Normal Affect, Cooperative Lab/DI/Studies Reviewed: Laboratory Tests 05/12/16 05/12/16 05/12/16 04:55 06:42 11:24 WBC 6.0 Hgb 8.7 L Hct 27.0 L MCV 93 Plt Count 241 POC Capillary Glucose 108 H 160 H 05/12/16 17:00 WBC Hgb Hct MCV Plt Count POC Capillary Glucose 138 H - Assessment (1) Infection associated with internal right knee prosthesis Acute T84.53XA - INFECT/INFLM REACTION DUE TO INTERNAL R KNEE PROSTH, INIT Qualifiers: Encounter type: initial encounter Qualified Code(s): T84.53XA - Infection and inflammatory reaction due to internal right knee prosthesis, initial encounter Comment/Plan: Culture shows Serratia susceptible multiple antibiotics. PICC line has been inserted. Based on ortho recommendation patient requires 6 weeks of IV Rocephin and 2 weeks of p.o. Levaquin. (2) Anemia Acute D64.9 - ANEMIA, UNSPECIFIED Qualifiers: Anemia type: unspecified type Qualified Code(s): D64.9 - Anemia, unspecified Comment/Plan: Monitor counts transfuse as needed and indicated. Hg=8.7 (3) Non-insulin dependent type 2 diabetes mellitus Acute E11.9 - TYPE 2 DIABETES MELLITUS WITHOUT COMPLICATIONS Comment/Plan: Continue ADA diet Accu-Cheks and sliding scale. (4) Obstructive sleep apnea Acute G47.33 - OBSTRUCTIVE SLEEP APNEA (ADULT) (PEDIATRIC) Comment/Plan: Continue nocturnal CPAP. (5) Post-op pain Acute G89.18 - OTHER ACUTE POSTPROCEDURAL PAIN Comment/Plan: Up -titrate narcotic analgesics to keep pain under better control (6) Tobacco abuse Acute Z72.0 - TOBACCO USE Comment/Plan: 10 minutes discussion smoking cessation. She states she has been able to stop for a few days in the past but never for prolonged period time. I advised her that she needs to stop given her multiple other problems. She is currently using a low-dose nicotine patch.
[2016-05-12] MEDS: CEFTRIAXONE 2 GM in D5W 100 ML IV SCH (13:12)
[2016-05-12] MEDS: LEVOFLOXACIN 750 MG TAB PO SCH (17:44)
[2016-05-12] MEDS: DOCUSATE-SENNA CONCENTRATE TAB PO SCH (20:36)
[2016-05-12] MEDS: NICOTINE 7 MG PATCH TOP SCH (20:40)
[2016-05-13] MEDS: HYDROmorphone 1 MG INJECTION IV PRN ×4 (00:52→15:48)
[2016-05-13] MEDS: NS 1,000 ML IV SCH ×2 (01:00→08:34)
[2016-05-13] MEDS: IPRATROPIUM 0.02% 2.5 ML NEB NEB SCH ×3 (01:52→14:36)
--- NOTE | 2016-05-13 05:32 | PCM.ORTHBL ---
- Subjective Post Op Day: 4 Daily Assessment - Patient: Reports: No new complaints, Awake Alert Oriented x4 , Pain is less, Tolerating Regular Diet, Voiding without difficulty, Afebrile, Ambulating with Physical Therapist (progressing slowly), Other (denies chest pain). Denies: Difficulty Swallowing, Shortness of breath, Nausea, Vomiting - Objective / Physical Exam Vital Signs: Temperature: 98.7 F (05/13/16 05:04) HR: 85 (05/13/16 05:04)RR: 20 (05/13/16 05: 04) BP: 128/66 (05/13/16 05:04)Pulse Ox: 98 (05/13/16 05:04) General: Alert, Oriented x3, Cooperative, No acute distress, Well appearing Musculoskeletal / Extremities: 2 plus Dorsalis Pedis Pulse, Dressing Clean/Dry/ Intact. negative: Tenderness (no calf tenderness) Neurological: Positive Sensation First Dorsal Web Space, Sensation to light touch intact, Extensor Hallicus Longus Intact, Flexor Hallicus Longus Intact, Dorsiflexion Intact, Plantarflexion Intact - Assessment and Plan (1) Infection associated with internal right knee prosthesis Acute T84.53XA - INFECT/INFLM REACTION DUE TO INTERNAL R KNEE PROSTH, INIT initial encounter T84.53XA - Infection and inflammatory reaction due to internal right knee prosthesis, initial encounter Plan: s/p I&D of right knee with poly exchange Continue pain management TEDS/SCDS/ECASA 325mg BID for 30 days post-op for DVT prophylaxis PT/OT/WBAT in knee immobilizer brace. No knee flexion for 6 weeks post-op Continue antibiotics. PICC line has been placed. Will need 6 weeks IV Ceftriaxone and plan for 2 weeks PO Levaquin. Patient will need ID outpatient consult in 2 weeks. CBC, BMP, Sed Rate, and CRP Q2 weeks outpatient Wound vac to be removed tomorrow and Aquacel dressing to be placed for 7 days D/C planning, will need HH/PT
[2016-05-13] MEDS: REGULAR INSULIN 100 UNITS/ML - 3 ML VIAL SQ SCH ×2 (06:24→12:37)
[2016-05-13] MEDS: SODIUM CHLORIDE 0.9% 3 ML FLUSH FLUSH SCH (06:24)
[2016-05-13] MEDS: MUPIROCIN 2% OINT 22 GM TUBE NAS SCH (08:39)
[2016-05-13] MEDS: PANTOPRAZOLE 40 MG TAB PO SCH (08:41)
[2016-05-13] MEDS: AZATHIOPRINE 50 MG TAB PO SCH (08:41)
[2016-05-13] MEDS: FENOFIBRATE 145 MG TAB PO SCH (08:41)
[2016-05-13] MEDS: MetFORMIN 500 MG IMMED RELEASE TAB PO SCH (08:41)
[2016-05-13] MEDS: TOLTERODINE 4 MG LA CAP PO SCH (08:42)
[2016-05-13] MEDS: Aspirin (Orange Enteric Coated) 325 mg tab PO SCH (08:42)
[2016-05-13] MEDS: OXYCODONE HCL 5 MG TABLET PO PRN ×2 (08:54→12:38)
[2016-05-13] MEDS: ALBUTEROL 0.083% 3 ML NEB NEB SCH (09:10)
[2016-05-13] MEDS: BUDESONIDE 0.5 MG NEB NEB SCH (09:12)
[2016-05-13] MEDS: VITAMINS, MULTIPLE CAP PO SCH (12:37)
[2016-05-13] MEDS: CALCIUM CARBONATE + VITAMIN D 500 MG TAB PO SCH (12:38)
[2016-05-13] MEDS: PROBIOTIC BLEND TAB PO SCH (12:38)
[2016-05-13] MEDS: CEFTRIAXONE 2 GM in D5W 100 ML IV SCH (13:44)
[2016-05-13 13:47] VITALS: BP 123/70; PULSE 86; TEMP 99.6
== END 2016-05-13 16:52 | disposition home health service (06) | DRG 467 ==
LOC: ED 21:44 → MPS3 05-09 00:14
PROVIDERS: ADMIT Orthopaedic Surgery; ATTEND Family Medicine
PROC: 0SPC0JZ Removal of Synthetic Substitute from Right Knee Joint, Open Approach (ICD-10-PCS; 2016-05-09)
PROC: 0SRC0JA Replacement of Right Knee Joint with Synthetic Substitute, Uncemented, Open Approach (ICD-10-PCS; principal; 2016-05-09 11:00)
DX: T84.53XA Infection and inflammatory reaction due to internal right knee prosthesis, initial encounter (principal); M96.842 Postprocedural seroma of a musculoskeletal structure following a musculoskeletal system procedure; K75.4 Autoimmune hepatitis; Z68.43 Body mass index [BMI] 50.0-59.9, adult; D64.9 Anemia, unspecified; E11.9 Type 2 diabetes mellitus without complications; F17.210 Nicotine dependence, cigarettes, uncomplicated; Y83.1 Surgical operation with implant of artificial internal device as the cause of abnormal reaction of the patient, or of later complication, without mention of misadventure at the time of the procedure; E66.01 Morbid (severe) obesity due to excess calories; S83.8X1A Sprain of other specified parts of right knee, initial encounter; X58.XXXA Exposure to other specified factors, initial encounter; G89.18 Other acute postprocedural pain; G47.33 Obstructive sleep apnea (adult) (pediatric); Z79.84 Long term (current) use of oral hypoglycemic drugs; Z71.6 Tobacco abuse counseling; J45.909 Unspecified asthma, uncomplicated; K21.9 Gastro-esophageal reflux disease without esophagitis; I25.10 Atherosclerotic heart disease of native coronary artery without angina pectoris; Z79.82 Long term (current) use of aspirin; Z79.899 Other long term (current) drug therapy
CPT/HCPCS: 36415; 36569; 76937; 77001; 80048; 80053; 81001; 82962; 83605; 84443; 85025; 85027; 85651; 86140; 87040; 87070; 87075; 87077; 87086; 87186; 87641; 94640; 94660; 96365; 97161; 97165; 99283; 99406; G0237; J0330; J0696; J1100; J1170; J1642; J2001; J2250; J2405; J2550; J2710; J3010; J3370; J3490; J7060; J7070; S0077

== ENCOUNTER 2016-05-20 20:17 | Emergency (ER) | payer MEDICAID ==
[2016-05-20 20:40] VITALS: TEMP 99.4; BMI 52.8
[2016-05-20] MEDS ORDERED: OXYCODONE HCL 5 MG TABLET PO ONE (20:49)
[2016-05-20] MEDS ORDERED: ONDANSETRON HCL 4 MG/2 ML VIAL IV ONE (20:52)
[2016-05-20] MEDS ORDERED: MORPHINE 4 MG/ML INJECTION IV ONE (20:52)
[2016-05-20] MEDS ORDERED: HEPARIN 500 UNITS/5 ML (100 UNITS/ML) SYR FLUSH ONE (21:05)
[2016-05-20 21:30] LABS: BLOOD UREA NITROGEN 9 MG/DL (7-17); CALC CORRECTED 10.1 MG/DL (8.4-10.2); CALCIUM 9.3 MG/DL (8.4-10.2); CALCULATED OSMOLALITY 268 MOs/Kg (270-290); CHLORIDE 106 mEq/L (98-107); GLUCOSE 101 mg/dL (70-99); SODIUM LEVEL 140 mEq/L (137-146); TOTAL PROTEIN 7.2 G/DL (6.3-8.2)
--- NOTE | 2016-05-20 21:31 | EDPRACDOC ---
- General Stated Complaint: DIZZINESS Time Seen by Provider: 05/20/16 20:33 Information Source: Patient - History of Present Illness Onset: [employer] HPI: C/o left hip pain after fall today while getting up from wheelchair to go to the bathroom. Pt was in a hurry and got dizzy standing up and then fell back into wheelchair. Denies CP, SOB, cough, sore throat, head injury, LOC, N/V, JIMENEZ, changes in urine or BM. Med hx = DM, HDL, asthma. Surgical hx = total hysterectomy. Pain Severity: Reports: Moderate Injuries/Pain Location: Reports: pelvis (left hip) Reason for Fall: Reports: lightheaded Loss of Consciousness: no loss of consciousness Allergies/Adverse Reactions: Allergies Penicillins Allergy (Verified 05/09/16 00:39) Hives* Home Medications: Ambulatory Orders Beclomethasone Dipropionate [QVar 80 (8.7 gm inhaler)] 2 puff INH BID 01/01/13 Estrogens [Premarin] 0.625 mg PO DAILY 01/01/13 MetFORMIN (Immediate Release) [GLUCOPHAGE Immed Release] 500 mg PO BID 07/08/13 Azathioprine [Azasan] 100 mg PO DAILY 02/12/16 Fenofibric Acid (Choline) [Trilipix] 135 mg PO DAILY 02/12/16 Fesoterodine Fumarate [Toviaz] 8 mg PO DAILY 02/12/16 Hydroxyzine HCl 25 mg PO TID PRN 02/12/16 Multivitamin [One Daily] 1 tab PO DAILY 03/28/16 Aspirin (OrangeEnteric Coated) [Ecotrin] 325 mg PO BID #60 tab 05/11/16 Oxycodone Immediate Release [Oxycodone Immediate Release (OxyIR)] 5 - 10 mg PO Q4H PRN #40 tab 05/11/16 Senna Concentrate [Senokot] 2 tab PO QHS #60 tablet 05/11/16 Levofloxacin [Levaquin] 750 mg PO DAILY #12 tab 05/13/16 Hydralazine HCl 10 mg PO BID 05/20/16 Pantoprazole Sodium [Protonix] 20 mg PO BID 05/20/16 Trazodone HCl [Desyrel] 50 - 100 mg PO QHS 05/20/16 ED Past Medical History - History Reviewed Yes Nurses notes reviewed and agree except as marked - Patient Medical History Cardiac History: Reports: Coronary Artery Disease (NON OBSTRUCTIVE), Hypertension, Cardiac Catheterization (2011), Hypercholesterolemia Respiratory History: Reports: Asthma GI/ History: Reports: Urinary Tract Infection, Gastroesophageal Reflux Musculoskeletal History: Reports: Arthritis, Osteoarthritis Psychological History: Denies: Depression, Substance Use Disorder Systemic History: Reports: Cancer, Anemia, Diabetes Surgical History: Reports: Cholecystectomy, Hysterectomy, Cardiac Catheterization (2011), Other (Revision right total knee arthroplasty 04/02/2016 ) - Family Medical History Reports: Hypertension (Father,Mother,Siblings), Diabetes (Father,brothers), Cardiac Disorders (Father,Brother). Denies: Cancer, Stroke - Social Medical History Smoking Status: Never smoker Social History: Denies: Other Substance Use EDM Review of Systems - Review of Systems ROS Negative Except as Marked: Yes All systems reviewed and were negative except as marked Musculoskeletal: Pelvis (left hip pain) Integumentary: Wound (recent right knee surgery with wound vac and brace) Endocrine: Diabetes - Physical Exam Constitutional: No apparent distress, Alert Oriented to: Time, Person, Place Last recorded Vital Signs: Last Vital Signs Temp 99.4 F 05/20/16 20:33 Pulse 90 05/20/16 20:33 Resp 18 05/20/16 20:33 BP 117/58 L 05/20/16 20:33 Pulse Ox 94 05/20/16 20:33 Oxygen Pulse Oxygen Saturation 94 O2 Device Oxygen Flow Rate Fraction of Inspired Oxygen ( FIO2) - HEENT Head: Normal Eye Exam: negative: Conjunctival Injection, Scleral Icterus Oropharynx: negative: Drooling TMJ: Normal Nose: No Symptoms Reported Neck: Normal - Respiratory/Cardiovascular Respiratory: Normal - CTA Cardiovascular: Normal - GI Auscultation: Normal Palpation: Normal Tenderness: Non tender - Musculoskeletal Back: Normal Extremities: Normal Musculoskeletal Comment: pain with palpation of left hip - Integumentary Skin: Normal - Neurologic Mood Description: Normal Thought: Coherent Perception: Normal ED Injury/Fall Exam - Physical Exam Head Injury: no evidence of injury Extremity Exam: pain with movement (left hip) Skin: Normal - Roslyn Coma Score Best Eye Response (Monica): (4) open spontaneously Best Verbal Response (Roslyn): (5) oriented Best Motor Response (Roslyn): (6) obeys commands Roslyn Total: 15 - Re-evaluation Re-evaluation 1 Re-evaluation Time: 23:24 (pt able to ambulate at baseline) - Results 05/20/16 21:09 - EKG EKG #1 EKG Time: 21:36 -: Yes EKG interpreted by me Rate: bpm: 85 Rhythm: NSR ST: Nonsp - Diagnostic Imaging Pelvis Image interpreted by: Radiologist EXAM: BILATERAL HIP (WITH PELVIS) 3-4 VIEWS COMPARISON: Left hip radiographs performed 11/23/2015 FINDINGS: There is no evidence of fracture or dislocation. There is chronic superior joint space narrowing at the left hip, with perhaps mildly worsened sclerosis. Underlying subcortical cystic change is again seen. Both femoral heads remain seated at their respective acetabula. Postoperative change is noted along the lower lumbar spine. The sacroiliac joints demonstrate mild sclerotic change. The visualized bowel gas pattern is grossly unremarkable in appearance. Scattered phleboliths are noted within the pelvis. IMPRESSION: 1. No evidence of fracture or dislocation. 2. Perhaps mildly worsened degenerative change noted at the left hip joint, with chronic superior joint space narrowing, sclerosis and subcortical cystic change. Electronically Signed By: José Capone M.D. On: 05/20/2016 21:42 - Additional Information pt has home rx for oxycodone for pain. Decision Time to Discharge: 23:24 - Departure Disposition: Home Condition: Stable Final Diagnosis: Left hip pain Fall with injury Qualifiers: Encounter type: initial encounter Qualified Code(s): W19.XXXA - Unspecified fall, initial encounter Instructions: Hip Pain (ED), Hip Contusion (ED) Education/Counseling Given To: Patient Education/Counseling Given Regarding: Diagnosis, Treatment, Prognosis, Follow Up Referrals: Von Leslie MD [Primary Care Provider] - One Week Prescriptions: No Action Estrogens [Premarin] 0.625 mg PO DAILY Beclomethasone Dipropionate [QVar 80 (8.7 gm inhaler)] 2 puff INH BID MetFORMIN (Immediate Release) [GLUCOPHAGE Immed Release] 500 mg PO BID Hydroxyzine HCl 25 mg PO TID PRN PRN Reason: Hives Fesoterodine Fumarate [Toviaz] 8 mg PO DAILY Azathioprine [Azasan] 100 mg PO DAILY Fenofibric Acid (Choline) [Trilipix] 135 mg PO DAILY Multivitamin [One Daily] 1 tab PO DAILY Aspirin (OrangeEnteric Coated) [Ecotrin] 325 mg PO BID #60 tab Oxycodone Immediate Release [Oxycodone Immediate Release (OxyIR)] 5 - 10 mg PO Q4H PRN #40 tab PRN Reason: Pain Senna Concentrate [Senokot] 2 tab PO QHS #60 tablet Levofloxacin [Levaquin] 750 mg PO DAILY #12 tab Trazodone HCl [Desyrel] 50 - 100 mg PO QHS Hydralazine HCl 10 mg PO BID Pantoprazole Sodium [Protonix] 20 mg PO BID Additional Instructions: Follow up with Dr Mccarthy when you got to see him about right knee. Return to ED for any new or worsening symptoms.
--- NOTE | 2016-05-20 21:44 | DIRPT ---
CLINICAL DATA: Status post fall, with left hip pain. Initial encounter. EXAM: BILATERAL HIP (WITH PELVIS) 3-4 VIEWS COMPARISON: Left hip radiographs performed 11/23/2015 FINDINGS: There is no evidence of fracture or dislocation. There is chronic superior joint space narrowing at the left hip, with perhaps mildly worsened sclerosis. Underlying subcortical cystic change is again seen. Both femoral heads remain seated at their respective acetabula. Postoperative change is noted along the lower lumbar spine. The sacroiliac joints demonstrate mild sclerotic change. The visualized bowel gas pattern is grossly unremarkable in appearance. Scattered phleboliths are noted within the pelvis. IMPRESSION: 1. No evidence of fracture or dislocation. 2. Perhaps mildly worsened degenerative change noted at the left hip joint, with chronic superior joint space narrowing, sclerosis and subcortical cystic change. Electronically Signed By: José Capone M.D. On: 05/20/2016 21:42
[2016-05-21] MEDS ORDERED: OXYCODONE HCL 5 MG TABLET PO ONE ×2 (00:01→00:06)
[2016-05-21 00:17] VITALS: BP 145/79; PULSE 99
== END 2016-05-21 00:14 | disposition home or self-care (01) ==
LOC: ED 20:17
DX: M25.552 Pain in left hip (principal); W19.XXXA Unspecified fall, initial encounter; Y93.9 Activity, unspecified
CPT/HCPCS: 36415; 73521; 80053; 93005; 96374; 96375; 99284; J1642; J2270; J2405; J3490